=== PATIENT | female | born 1980 | race Caucasian/White ===

== ENCOUNTER 2023-05-10 06:32 | Day surgery (SDC) | payer OTHER, SELFPAY ==
[2023-05-06 10:11] LABS: Urine Albumin Negative (Neg - Trace); Urine Bilirubin Negative (Negative); Urine Character Clear (Clear); Urine Color Yellow; Urine Glucose Negative (Negative); Urine Ketone Negative (Negative); Urine Leukocyte Negative (Negative); Urine Nitrite Negative (Negative); Urine Occult Blood Negative (Negative); Urine Specific Gravity 1.015 (<1.030); Urine Urobilinogen Negative (Neg - 1+)
[2023-05-06 10:15] LABS: % Basophils 0.7 % (0-2); % Eosinophils 2.4 % (0-6); % Immature Granulocytes 0.6 % (0-0.5); % Lymphocytes 37.4 % (20.5-51.1); % Monocytes 6.5 % (1.7-9.3); % Neutrophils 52.4 % (42.2-75.2); Absolute Basophils 0.1 10^3/uL (0-0.2); Absolute Eosinophils 0.3 10^3/uL (0-0.7); Absolute Immature Granulocytes 0.1 10^3/uL (0-0.05); Absolute Lymphocytes 3.9 10^3/uL (1.2-3.4); Absolute Monocytes 0.7 10^3/uL (0.1-0.6); Absolute Neutrophils 5.5 10^3/uL (1.4-6.5); Hemoglobin 11.6 g/dL (12.0-16.0); Mean Corp Hgb Conc. 30.5 g/dL (33.0-37.0); Mean Corpuscular Hgb 23.2 pg (27.0-31.0); Mean Corpuscular Volume 76.2 fL (81.0-99.0); Nucleated Red Blood Cells % 0 %; Platelet Count 489 10^3/uL (130-400); Red Blood Cell Count 4.99 10^6/uL (4.20-5.40); Red Cell Dist. Width 20.9 % (11.5-14.5); White Blood Cell Count 10.4 10^3/uL (4.8-10.8)
[2023-05-06 10:30] LABS: APTT 34.1 Sec (23.4-35.0); PT 13.4 Sec (11.4-14.6)
[2023-05-06 10:51] LABS: Blood Urea Nitrogen 13 mg/dl (7-17); Calcium 9.4 mg/dl (8.4-10.2); Carbon Dioxide 19 mmol/L (22-30); Chloride 106 mmol/L (98-107); Glucose 86 mg/dl (70-99); Sodium 138 mmol/L (135-145); eGFR > 60.00
[2023-05-06 12:08] VITALS: BMI 27.9
[2023-05-10] VITALS (11 sets, daily range): BP systolic 118–135; BP diastolic 62–90; BMI 27.9
[2023-05-10] MEDS: NORMOSOL-R 1000 IV (08:15)
[2023-05-10 08:26] LABS: Urine Albumin Negative (Neg - Trace); Urine Bilirubin Negative (Negative); Urine Character Clear (Clear); Urine Color Yellow; Urine Glucose Negative (Negative); Urine Ketone Negative (Negative); Urine Leukocyte Negative (Negative); Urine Nitrite Negative (Negative); Urine Occult Blood Negative (Negative); Urine Specific Gravity 1.015 (<1.030); Urine Urobilinogen Negative (Neg - 1+); Urine pH 6.5 (5.0-9.0)
[2023-05-10 10:46] LABS: Glucose - Point of Care 90 mg/dl (70-99)
[2023-05-10] MEDS: DILAUDID 0.25 MG IV ×2 (10:52→11:09)
[2023-05-10] MEDS: VALIUM 5 MG PO (11:30)
== END 2023-05-10 12:44 | disposition home or self-care (01) ==
LOC: SDS 06:32
PROVIDERS: ATTENDING PHYSICIAN Urology; FAMILY PHYSICIAN Family Medicine
DX: N30.10 Interstitial cystitis (chronic) without hematuria (principal); N39.41 Urge incontinence
CPT/HCPCS: 52287; 36415; 80048; 81003; 82962; 85025; 85610; 85730; 87086; 93005; J0585

== ENCOUNTER 2023-11-01 08:16 | Inpatient (IN) | payer OTHER, SELFPAY ==
[2023-10-30 16:56] VITALS: BP 147/99
[2023-10-30 17:14] LABS: Urine Albumin Negative (Neg - Trace); Urine Bilirubin Negative (Negative); Urine Character Slightly Cloudy (Clear); Urine Color Yellow; Urine Glucose Negative (Negative); Urine Ketone Negative (Negative); Urine Leukocyte 2+ (Negative); Urine Nitrite Positive (Negative); Urine Occult Blood Negative (Negative); Urine Urobilinogen Negative (Neg - 1+)
[2023-10-30 17:27] LABS: Urine Bacteria Many (Negative); Urine Red Blood Cell 0-2 /HPF (0-2)
[2023-10-30 17:28] LABS: Urine White Cell 70-80 /HPF (0-5)
[2023-10-30] MEDS: ZOFRAN 4 MG IV (18:42)
[2023-10-30] MEDS: TORADOL 15 MG IV ×2 (18:42→21:53)
[2023-10-30] MEDS: NSS 1000 IV (18:43)
[2023-10-30 18:47] VITALS: BP 118/72
[2023-10-30 18:49] LABS: % Basophils 0.3 % (0-2); % Eosinophils 2.3 % (0-6); % Immature Granulocytes 0.7 % (0-0.5); % Lymphocytes 36.6 % (20.5-51.1); % Monocytes 6.9 % (1.7-9.3); % Neutrophils 53.2 % (42.2-75.2); Absolute Eosinophils 0.3 10^3/uL (0-0.7); Absolute Immature Granulocytes 0.1 10^3/uL (0-0.05); Absolute Lymphocytes 4.4 10^3/uL (1.2-3.4); Absolute Monocytes 0.8 10^3/uL (0.1-0.6); Absolute Neutrophils 6.4 10^3/uL (1.4-6.5); Hematocrit 33.8 % (37.0-47.0); Hemoglobin 10.7 g/dL (12.0-16.0); Mean Corp Hgb Conc. 31.7 g/dL (33.0-37.0); Mean Corpuscular Hgb 23.1 pg (27.0-31.0); Mean Platelet Volume 9.6 fL (7.4-10.4); Nucleated Red Blood Cells % 0 %; Platelet Count 407 10^3/uL (130-400); Red Blood Cell Count 4.63 10^6/uL (4.20-5.40); Red Cell Dist. Width 18.6 % (11.5-14.5)
[2023-10-30 18:59] LABS: HCG, Serum Qualitative Screen Negative
[2023-10-30 19:02] LABS: ALT (SGPT) 18 U/L (0-35); AST (SGOT) 17 U/L (14-36); Albumin 4.5 g/dl (3.5-5.0); Alkaline Phosphatase 83 U/L (38-126); Blood Urea Nitrogen 13 mg/dl (7-17); Calcium 9.4 mg/dl (8.4-10.2); Carbon Dioxide 20 mmol/L (22-30); Chloride 108 mmol/L (98-107); Glucose 85 mg/dl (70-99); Potassium 3.9 mmol/L (3.5-5.1); Sodium 138 mmol/L (135-145); Total Bilirubin 0.4 mg/dl (0.2-1.3); Total Protein 7.2 g/dl (6.3-8.2); eGFR > 60.00
[2023-10-30 21:14] VITALS: BP 122/86
--- NOTE | 2023-10-30 21:48 | ED.GENMED ---
History of Present Illness
General
Chief Complaint: Urinary Symptoms
Source: patient
Exam Limitations: none
Time Seen by Provider: 10/30/23 17:30
Nursing documentation reviewed up to this point in time: agreed with
History of Present Illness
History of Present Illness:
43-year-old female with past medical history of asthma, interstitial cystitis presenting to the emergency department today with concerns of frequency urgency and left-sided flank pain. Denies any fever chest pain shortness of breath has had nausea
no vomiting.
Review of Systems
Review of Systems
Allergies reviewed?: Yes
All Other Systems: ROS reviewed and negative except as documented in HPI and ROS
Phy Exam
Physical Exam
Physical Exam:
GENERAL: Alert , in no apparent distress
EYE: pupils equal and reactive
NECK: Supple, no significant adenopathy.
ENT: o/p clr, mmm.
CARDIAC: Regular rate and rhythm .
LUNGS: Clear breath sounds bilaterally, no acute respiratory distress, no wheezes/rales/rhonchi
ABDOMEN: Soft, without focal tenderness, no r/g, no cvat
NEUROLOGICAL: Alert and oriented, no focal neuro deficits
SKIN: Warm and dry, skin intact.
MUSCULOSKELETAL: No edema, well perfused.
PSYCH: Normal and appropriate interaction.
Course
Orders/Labs/Results
Orders:
Orders
10/30/23 17:06
Urinalysis Reflex To Culture Urgent
Date Specimen was Collected: 10/30/23
Time Specimen was Collected: 17:00
Urine Microscopic Reflex Cult Urgent
Urine Culture Urgent
TRACY Source: U
Specimen Description:
Date Specimen was Collected: 10/30/23
Time Specimen was Collected: 17:00
10/30/23 18:28
0.9% Sodium Chloride 1000 ml [Nss] 1,000 ml IV BOLUS
Ketorolac [Toradol] 15 mg IV NOW STA
Ondansetron Injectable [Zofran] 4 mg IV NOW STA
10/30/23 18:29
CT Abd/pel Without Iv Or Oral Urgent
Comment:
Reason For Exam: left flank pain hx of stone
Test Result ONCE
10/30/23 18:42
Complete Blood Count/With Diff Urgent
Comprehensive Metabolic Panel Urgent
HCG, Serum Qualitative Screen Urgent
10/30/23 21:43
CefTRIAXone [Rocephin] 1,000 mg IV NOW STA
Ketorolac [Toradol] 15 mg IV NOW STA
Tamsulosin [Flomax] 0.4 mg PO NOW STA
10/30/23 21:49
Sterile Water [Sterile Water For Injection] 20 ml .ROUTE .STK-MED
10/30/23 22:14
Albuterol [ProAIR HFA INHALER] 2 puff INH Q6H PRN
10/30/23 22:15
mometasone-formoterol [Dulera] 2 puff INH Q12H
10/30/23 22:18
Admit/Transfer Patient As Directed
Co-Sign Provider:
Level of Care: Observation services
Assign to:: Medical/Surgical
Physician / Group: Hospitalist
Diagnosis: Urolithiasis, acute cystitis
PRN Pain Medication Management As Directed
May give lesser potent ordered pain med per pt: Yes
preference::
Protocol:: Medication orders for pain may be administered in a
manner that supports deferring to patient preference
when the pt is:
- Requesting an ordered lesser potent pain medication.
Least to most potent pain medications are defined
as: acetaminophen < NSAID < tramadol < opioids
(morphine, oxycodone, hydromorphone).
- Requesting a lesser dose of the same medication IF
ORDERED.
- Requesting a less intrusive route of administration
if both routes are prescribed by the provider (PO <
IV).
07/20/24 22:19
Code Status As Directed
Resuscitation Status: Full Code
10/30/23 22:26
Strain Urine As Directed
If stone obtained- send for analysis: No
10/30/23 23:00
Mexiletine [Mexitil] 150 mg PO .AM
Mexiletine [Mexitil] 300 mg PO .DINNER TIME
10/31/23 08:00
Duloxetine Delayed Release [Cymbalta Delayed Release] 60 mg PO DAILY
Gabapentin [Neurontin] 400 mg PO TID
Omeprazole Suspension [Prilosec Baby Oral Suspension] 40 mg PO DAILY
Spironolactone [Aldactone] 25 mg PO DAILY
Tamsulosin [Flomax] 0.4 mg PO DAILY
atomoxetine 60 mg PO DAILY
10/31/23 22:00
Amitriptyline [Elavil] 50 mg PO HS
Atorvastatin [Lipitor] 10 mg PO HS
HydrOXYZINE [Atarax] 50 mg PO HS
Montelukast Sodium [Singulair] 10 mg PO HS
Topiramate [Topamax] 200 mg PO HS
melatonin 10 mg PO HS
Abnormal Lab Results
10/30/23 10/30/23
17:06 18:42
WBC 12.0 H 10^3/uL
(4.8-10.8)
Hgb 10.7 L g/dL
(12.0-16.0)
Hct 33.8 L %
(37.0-47.0)
MCV 73.0 L fL
(81.0-99.0)
MCH 23.1 L pg
(27.0-31.0)
MCHC 31.7 L g/dL
(33.0-37.0)
RDW 18.6 H %
(11.5-14.5)
Plt Count 407 H 10^3/uL
(130-400)
Abs Immat Gran (auto) 0.1 H 10^3/uL
(0-0.05)
Absolute Lymphs (auto) 4.4 H 10^3/uL
(1.2-3.4)
Absolute Monos (auto) 0.8 H 10^3/uL
(0.1-0.6)
Immature Gran % 0.7 H %
(0-0.5)
Chloride 108 H mmol/L
(98-107)
Carbon Dioxide 20 L mmol/L
(22-30)
Creatinine 1.1 H mg/dL
(0.6-1.0)
Urine Nitrite (Reflex) Positive A
(Negative)
Leukocyte Esterase Rfl 2+ A
(Negative)
Urine WBC (Reflex) 70-80 A /HPF
(0-5)
Urine Bacteria (Reflex) Many A
(Negative)
10/30/23 18:42
10/30/23 18:42
Vital Signs
Initial and Last Documented VS:
Initial Vital Signs
Temp Pulse Resp BP Pulse Ox
98.5 F 110 18 147/99 98
10/30/23 16:56 10/30/23 16:56 10/30/23 16:56 10/30/23 16:56 10/30/23 16:56
Last Documented Vital Signs
Temp Pulse Resp BP Pulse Ox
98.5 F 75 18 122/86 100
10/30/23 16:56 10/30/23 21:14 10/30/23 18:47 10/30/23 21:14 10/30/23 21:14
MDM/Problems Addressed
MDM/Problems Addressed:
43-year-old female presenting to the emergency department today with concerns of urinary symptoms as well as left-sided flank pain. On arrival initially tachycardic but improving after receiving pain medication and nausea medication. White count
of 12 renal function at baseline otherwise urinalysis appears to be consistent with urinary tract infection considering elevated nitrites, leukocyte esterase and elevated white blood cell count. CT scan showing 3 mm partially obstructing stone of
the left ureter. Case was discussed with urology felt stent was potentially possible but alternatively could treat with antibiotics and reassessment. Plan to treat with IV antibiotics and for monitoring overnight and reassessment tomorrow.
*Critical Care Note
Total Time (30-74mins, 75-104mins- exclusive of procedures): Not Applicable
ED Attending Note
-
Portions of this chart may have been created with voice recognition software.� Occasional wrong word or��sound alike� substitutions may have occurred due to the inherent limitations of voice recognition software.
Discharge Plan
Departure
Patient Disposition: Admit
Date of Disposition: 10/30/23
Time of Disposition: 22:33
Admit to: Med/Surg
Admit to doctor: Mickey
Presentation/result/management discussed w/ accepting MD/DO: Hospitalist
Patient with high blood pressure during this ER visit?: No
Condition: Good
Covid-19: Not Applicable
Discharge Problem:
Calculus, ureteral, UTI (urinary tract infection)
Prescriptions:
No Action
ondansetron HCl 4 MG tablet
4 mg PO PRN PRN (Reason: nausea)
clonazepam 0.25 MG tablet
0.5 mg PO PRN PRN (Reason: with olanzapine & migraines)
olanzapine 2.5 MG tablet
0.5 mg PO PRN PRN (Reason: migraines)
amitriptyline 50 MG tablet
50 mg PO HS
tamsulosin 0.4 MG capsule
0.4 mg PO DAILY
metformin 1,000 MG tablet
1,000 mg PO BID
gabapentin 300 MG capsule
400 mg PO TID
hydroxyzine HCl 25 MG tablet
50 mg PO HS
topiramate 100 MG tablet
200 mg PO HS
diazepam 5 MG tablet
5 mg PO PRN PRN (Reason: interstitial cystitis)
duloxetine 60 MG capsule,delayed release(DR/EC)
60 mg PO DAILY
Myrbetriq 50 MG tablet extended release 24 hr
50 mg PO DAILY
Emgality Pen 120 MG/ML pen injector
120 mg SQ MONTHLY
omeprazole 20 MG capsule,delayed release(DR/EC)
40 mg PO DAILY
melatonin 10 MG tablet
10 mg PO HS
Famotidine 10 MG Tablet
10 mg PO DAILY
Migrinal Nasal [place]
1 spray inhalation PRN PRN (Reason: migraines)
acetaminophen 500 mg Tablet
650 mg PO Q6H PRN (Reason: pain)
oxycodone-acetaminophen [Percocet] 7.5-325 mg Tablet
1 tab PO Q6H PRN (Reason: pain)
albuterol sulfate 90 mcg/actuation Hfa Aerosol Inhaler
2 puff INHALATION Q6H PRN (Reason: SOB)
Patient Comments:
a few weeks ago per patient.
Dulera 200-5 mcg/actuation Hfa Aerosol Inhaler
2 puff INHALATION Q12H
montelukast 10 mg Tablet
10 mg PO HS
almotriptan malate 12.5 mg Tablet
12.5 mg PO BID PRN (Reason: migraines)
Nurtec ODT 75 mg Tablet,Disintegrating
75 mg PO ONCE PRN (Reason: migraine)
Medical Cannabis
1 gummy PO PRN PRN (Reason: pain )
atorvastatin 10 mg Tablet
10 mg PO HS
phenazopyridine [Pyridium] 200 mg Tablet
200 mg PO TID
spironolactone 25 mg Tablet
25 mg PO DAILY
mexiletine 150 mg Capsule
150 mg PO .AM
mexiletine 150 mg Capsule
300 mg PO .DINNER TIME
nabumetone 500 mg Tablet
500 mg PO BID PRN (Reason: migraines)
atomoxetine 60 mg Capsule
60 mg PO DAILY
Vitamin D3
1 dose PO DAILY
Referrals:
May Kelsey DO [Family Provider] -
Interventions
Interventions:
*Risk Screen - Suicide Last Done: 10/30/23 18:24
*General Assessment Last Done: 10/30/23 18:24
*Neglect/Abuse Screening Last Done: 10/30/23 18:24
ED-Female Genitourinary Assessment Last Done: 10/30/23 18:24
Discharge Date and Time
Print Language: THAI
[2023-10-30] MEDS: FLOMAX 0.4 MG PO (21:53)
[2023-10-30] MEDS: ROCEPHIN 1000 MG IV (21:53)
--- NOTE | 2023-10-30 22:02 | HPS.HSE ---
Addendum entered and electronically signed by Ashley Arevalo MD 10/30/23 22:38:
Per Urology: patient added to OR schedule for a stent and can always cancel if we decide to watch.
Original Note:
Family Physician
-
Family Physician: May Kelsey DO
Chief Complaint
-
Dysuria frequency and back pain
History of Present Illness
This is a 43-year-old female was a past medical history of nephrolithiasis, interstitial cystitis, PCOS, asthma, migraine headaches, anxiety who presents to the emergency department with approximately 2 days of back pain as well as dysuria.
Patient reports sudden onset of back pain in her lower back. She initially thought that this was musculoskeletal pain and did not think much of it. She did not have any hematuria. She did notice foul malodorous urine that got her concerned. She
started having dysuria as well as urinary frequency. She reports nausea but no vomiting. She has not had any fevers or chills. Symptoms persisted and with urinary findings she became concerned and came to the emergency department.
In the emergency department the patient was afebrile, hemodynamically stable and in mild distress due to pain. The CT scan of the abdomen pelvis shows a left ureteral stone that was 3 mm with no hydronephrosis. There is a right nonobstructing
nephrolithiasis as well. UA was markedly positive with nitrite leukocyte esterase and pyuria as well as bacteriuria. She had leukocytosis of 12,000. Chemistries were all within normal limits.
Medical History
Past Medical History
Past Medical History: Reports Asthma and Psychiatric (Anxiety)
Additional Past Medical History:
PCOS
Migraine LÓPEZ
Interstitial Cystitis
Past Surgical History: Reports None
Social History
Tobacco: Non-smoker
Alcohol: None
Drug: None
Personal: Single
Living: With Family
Employment: Disabled
Family History
Family History: Diabetes and Hypertension
Allergies / Home Medications
Allergies reflects when Allergies were last updated in [employer].
Home Medications with original date entered in [employer]
Allergy/Medication List:
Allergies
Allergy/AdvReac Type Severity Reaction Status Date / Time
dichloralphenazone Allergy Anaphylaxis Verified 05/10/23 08:15
[From Midrin]
isometheptene [From Midrin] Allergy Anaphylaxis Verified 05/10/23 08:15
Latex, Natural Rubber Allergy Anaphylaxis Verified 05/10/23 08:16
metoclopramide [From Reglan] Allergy Hives Verified 05/10/23 08:15
pollen extracts Allergy nasal Verified 05/10/23 08:15
congestion
prochlorperazine Allergy Hives Verified 05/10/23 08:15
[From Compazine]
Home Medications
amitriptyline 50 mg tablet 50 mg PO HS 12/29/19
clonazepam 0.5 mg tablet 0.5 mg PO PRN PRN with olanzapine & migraines 12/29/19
diazepam 5 mg tablet 5 mg PO PRN PRN interstitial cystitis 12/29/19
duloxetine 60 mg capsule,delayed release 60 mg PO DAILY 12/29/19
gabapentin 300 mg capsule 400 mg PO TID 12/29/19
hydroxyzine HCl 25 mg tablet 50 mg PO HS 12/29/19
metformin 1,000 mg tablet 1,000 mg PO BID 12/29/19
mirabegron 50 mg tablet,extended release 24 hr (Myrbetriq) 50 mg PO DAILY 12/29/19
olanzapine 2.5 mg tablet 0.5 mg PO PRN PRN migraines 12/29/19
ondansetron HCl 4 mg tablet 4 mg PO PRN PRN nausea 12/29/19
tamsulosin 0.4 mg capsule 0.4 mg PO DAILY 12/29/19
topiramate 100 mg tablet 200 mg PO HS 12/29/19
galcanezumab-gnlm 120 mg/mL subcutaneous pen injector (Emgality Pen) 120 mg SQ MONTHLY 08/22/20
Famotidine 10 mg PO DAILY 07/23/21
Migrinal Nasal [place] 1 spray inhalation PRN PRN migraines 07/23/21
melatonin 10 mg tablet 10 mg PO HS 07/23/21
omeprazole 20 mg capsule,delayed release 40 mg PO DAILY 07/23/21
acetaminophen 500 mg tablet 650 mg PO Q6H PRN pain 01/22/22
albuterol sulfate 90 mcg/actuation aerosol inhaler 2 puff inhalation Q6H PRN SOB 01/22/22
mometasone-formoterol HFA 200 mcg-5 mcg/actuation aerosol inhaler (Dulera) 2 puff inhalation Q12H 01/22/22
montelukast 10 mg tablet 10 mg PO HS 01/22/22
oxycodone-acetaminophen 7.5 mg-325 mg tablet (Percocet) 1 tab PO Q6H PRN pain 01/22/22
almotriptan malate 12.5 mg tablet 12.5 mg PO BID PRN migraines 01/27/22
rimegepant 75 mg disintegrating tablet (Nurtec ODT) 75 mg PO ONCE PRN migraine 06/26/22
Medical Cannabis 1 gummy PO PRN PRN pain 06/29/22
Vitamin D3 1 dose PO DAILY 05/05/23
atomoxetine 60 mg capsule 60 mg PO DAILY 05/05/23
atorvastatin 10 mg tablet 10 mg PO HS 05/05/23
mexiletine 150 mg capsule 150 mg PO .AM 05/05/23
mexiletine 150 mg capsule 300 mg PO .DINNER TIME 05/05/23
nabumetone 500 mg tablet 500 mg PO BID PRN migraines 05/05/23
phenazopyridine 200 mg tablet (Pyridium) 200 mg PO TID 05/05/23
spironolactone 25 mg tablet 25 mg PO DAILY 05/05/23
Review of Systems
-
History Source: Patient
Constitutional: Reports No Symptoms
EENT: Reports No Symptoms
Respiratory: Reports No Symptoms
Cardiac: Reports No Symptoms
Abdomen/GI: Reports Abdominal Pain and Nausea
: Reports Dysuria, Frequency, Flank Pain and Urgency
Musculoskeletal: Reports No Symptoms
Skin: Reports No Symptoms
Neurological: Reports No Symptoms
Endocrine: Reports No Symptoms
Hematologic/Lymphatic: Reports No Symptoms
Psych: Reports No Symptoms
Physical Exam
Vital Signs
Vital Signs
Temp Pulse Resp BP Pulse Ox
98.5 F 75 18 122/86 100
10/30/23 16:56 10/30/23 21:14 10/30/23 18:47 10/30/23 21:14 10/30/23 21:14
Physical Exam
General: Well Developed, Well Nourished, No Apparent Distress and Conversant
HEENT: NormoCephalic, Anicteric, Moist mucous membranes, Atraumatic and PERRLA
Respiratory: Clear
Cardiac: S1/S2 and Regular Rhythm
Breast: Deferred by me
GI: Soft, Non Tender, Non Distended and Normal Bowel Sounds
Rectal: Deferred by Provider
Genito-urinary: Costovertebral angle tend
Musculoskeletal: No Clubbing, No Cyanosis and No Edema
Skin: Warm and Dry
Neuro: AO x 3
Hematologic/Lymphatic: No Lymphadenopathy
Psych: Calm
Laboratory Results
-
10/30/23 18:42
10/30/23 18:42
Laboratory Results
Total Bilirubin 0.4 mg/dl (0.2-1.3) 10/30/23 18:42
AST 17 U/L (14-36) 10/30/23 18:42
ALT 18 U/L (0-35) 10/30/23 18:42
Alkaline Phosphatase 83 U/L (38-126) 10/30/23 18:42
Data Reviewed
-
CT Scan: Image Personally Visualized and interpreted
Lab Data: Labs Reviewed by me
Old Records: Reviewed
Impression/Plan
-
IMPRESSION:
Patient with h/o anxiety, asthma, interstitial cystitis, PCOS, migraine headaches comes in with 2 days of back pain, dysuria and foul smelling urine and found to have a 3 mm stone in the left ureter without hydronephrosis as well as u/a c/w uti.
PLAN:
1. Obstructing urolithiasis - Recurrent nephrolithiasis. Renal function is stable. No signs of systemic infection. Patient is well appearing and not septic.
- admit to gen med
- pain control and antiemetics
- continue tamsulosin
- IV fluids, strain urine
- urology is aware, stone is likley to pass spontaneously but may require procedure given infection or if patient appears to decompensate
- npo after midnight
2. Cystitis - foul smelling urine with positive u/a with bacteruria and nitrites c/w UTI complicating her underlying interstitial cystitis
- urine cultures
- continue ceftriaxone for now
- pyridium prn
3. Migraine LÓPEZ - no active issues
- continue topamax, mexiletine, gabapentin and duloxetine
4. PCOS
- will hold metformin in case of procedure, continue spironolactone
DVT PPX - lovenox sq
Full Code
[2023-10-31 00:02] VITALS: BP 133/84
[2023-10-31 00:43] VITALS: BP 133/87; BMI 28.2
[2023-10-31] MEDS: DILAUDID 0.5 MG IV ×3 (00:58→09:26)
[2023-10-31] MEDS: LR 1000 IV ×3 (00:58→20:03)
--- NOTE | 2023-10-31 01:00 | PTCARENOTE ---
Received pt from ED, pt ambulated from stretcher to bed. complaints of abdominal pain and left back pain 11/19-see JUN. IVF as ordered.
[2023-10-31] MEDS: SYMBICORT 160/4.5 MCG INHALER INH (02:01)
[2023-10-31] MEDS: TORADOL 10 MG IV ×2 (02:59→16:29)
[2023-10-31 07:05] VITALS: BP 122/82
[2023-10-31] MEDS: SYMBICORT 160/4.5 MCG INHALER 2 PUFF INH ×2 (07:53→19:56)
[2023-10-31 08:14] LABS: Hematocrit 29.8 % (37.0-47.0); Hemoglobin 9.3 g/dL (12.0-16.0); Mean Corp Hgb Conc. 31.2 g/dL (33.0-37.0); Mean Corpuscular Volume 73.6 fL (81.0-99.0); Platelet Count 348 10^3/uL (130-400); Red Blood Cell Count 4.05 10^6/uL (4.20-5.40); Red Cell Dist. Width 18.4 % (11.5-14.5); White Blood Cell Count 9.5 10^3/uL (4.8-10.8)
[2023-10-31 08:34] LABS: Blood Urea Nitrogen 12 mg/dl (7-17); Calcium 8.5 mg/dl (8.4-10.2); Carbon Dioxide 17 mmol/L (22-30); Chloride 113 mmol/L (98-107); Estimated Creatinine Clearance 81 ml/min; Glucose 76 mg/dl (70-99); Potassium 4.2 mmol/L (3.5-5.1); Sodium 138 mmol/L (135-145); eGFR > 60.00
[2023-10-31] MEDS: PROTONIX 40 MG PO (09:24)
[2023-10-31] MEDS: CYMBALTA DELAYED RELEASE 60 MG PO (09:24)
[2023-10-31] MEDS: FLOMAX 0.4 MG PO (09:24)
[2023-10-31] MEDS: NEURONTIN 400 MG PO ×3 (09:25→21:13)
[2023-10-31] MEDS: ALDACTONE 25 MG PO (09:25)
--- NOTE | 2023-10-31 09:43 | CONS.URO ---
Consultation
-
Performing Provider: Peffer
Reason for Consultation: Ureteral stone, UTI
Medical History
History of Present Illness
43[address] Moura and Dr. Sanchez for history of interstitial cystitis, s/p hydrodistension and bladder botox, hysterectomy
History of known R renal stones in the past
Presented with 3 days of midline to left lower back pain
CT showed likely 3mm L mid ureteral stone and multiple R renal stones
She had urinalysis consistent with UTI, however did not have significant UTI sx over her baseline dysuria and urinary frequency and no fevers or sepsis
She was admitted for observation and possible ureteral stent
Past Medical History
Past Medical History: Other (PCOS Migraine LÓPEZ Interstitial Cystitis )
Past Surgical History: Gynocological and Urological (bladder botox, hydrodistension)
Social History
Tobacco: Non-smoker
Alcohol: None
Drug: None
Living: With Family
Family History
Family History: Reviewed & Not Pertinent
Allergies/Home Medications
Allergies
Allergy/AdvReac Type Severity Reaction Status Date / Time
dichloralphenazone Allergy Anaphylaxis Verified 05/10/23 08:15
[From Midrin]
isometheptene [From Midrin] Allergy Anaphylaxis Verified 05/10/23 08:15
Latex, Natural Rubber Allergy Anaphylaxis Verified 05/10/23 08:16
metoclopramide [From Reglan] Allergy Hives Verified 05/10/23 08:15
pollen extracts Allergy nasal Verified 05/10/23 08:15
congestion
prochlorperazine Allergy Hives Verified 05/10/23 08:15
[From Compazine]
Home Medications
�Medication �Instructions �Recorded �Confirmed �Type
amitriptyline 50 mg tablet 50 mg PO HS 12/29/19 05/10/23 History
clonazepam 0.5 mg tablet 0.5 mg PO PRN PRN with olanzapine 12/29/19 05/10/23 History
& migraines
diazepam 5 mg tablet 5 mg PO PRN PRN interstitial 12/29/19 05/10/23 History
cystitis
duloxetine 60 mg capsule,delayed 60 mg PO DAILY 12/29/19 05/10/23 History
release
gabapentin 300 mg capsule 400 mg PO TID 12/29/19 05/10/23 History
hydroxyzine HCl 25 mg tablet 50 mg PO HS 12/29/19 05/10/23 History
metformin 1,000 mg tablet 1,000 mg PO BID 12/29/19 05/10/23 History
mirabegron 50 mg tablet,extended 50 mg PO DAILY 12/29/19 05/10/23 History
release 24 hr (Myrbetriq)
olanzapine 2.5 mg tablet 0.5 mg PO PRN PRN migraines 12/29/19 05/10/23 History
ondansetron HCl 4 mg tablet 4 mg PO PRN PRN nausea 12/29/19 05/10/23 History
tamsulosin 0.4 mg capsule 0.4 mg PO DAILY 12/29/19 05/10/23 History
topiramate 100 mg tablet 200 mg PO HS 12/29/19 05/10/23 History
galcanezumab-gnlm 120 mg/mL 120 mg SQ MONTHLY 08/22/20 05/10/23 History
subcutaneous pen injector
(Emgality Pen)
Famotidine 10 mg PO DAILY 07/23/21 05/10/23 History
Migrinal Nasal [place] 1 spray inhalation PRN PRN 07/23/21 05/10/23 History
migraines
melatonin 10 mg tablet 10 mg PO HS 07/23/21 05/10/23 History
omeprazole 20 mg capsule,delayed 40 mg PO DAILY 07/23/21 05/10/23 History
release
acetaminophen 500 mg tablet 650 mg PO Q6H PRN pain 01/22/22 05/10/23 History
albuterol sulfate 90 mcg/actuation 2 puff inhalation Q6H PRN SOB 01/22/22 05/10/23 History
aerosol inhaler
mometasone-formoterol HFA 200 2 puff inhalation Q12H 01/22/22 05/10/23 History
mcg-5 mcg/actuation aerosol
inhaler (Dulera)
montelukast 10 mg tablet 10 mg PO HS 01/22/22 05/10/23 History
oxycodone-acetaminophen 7.5 mg-325 1 tab PO Q6H PRN pain 01/22/22 05/10/23 History
mg tablet (Percocet)
almotriptan malate 12.5 mg tablet 12.5 mg PO BID PRN migraines 01/27/22 05/10/23 History
rimegepant 75 mg disintegrating 75 mg PO ONCE PRN migraine 06/26/22 05/10/23 History
tablet (Nurtec ODT)
Medical Cannabis 1 gummy PO PRN PRN pain 06/29/22 05/10/23 History
Vitamin D3 1 dose PO DAILY 05/05/23 05/10/23 History
atomoxetine 60 mg capsule 60 mg PO DAILY 05/05/23 05/10/23 History
atorvastatin 10 mg tablet 10 mg PO HS 05/05/23 05/10/23 History
mexiletine 150 mg capsule 150 mg PO .AM 05/05/23 05/10/23 History
mexiletine 150 mg capsule 300 mg PO .DINNER TIME 05/05/23 05/10/23 History
nabumetone 500 mg tablet 500 mg PO BID PRN migraines 05/05/23 05/10/23 History
phenazopyridine 200 mg tablet 200 mg PO TID 05/05/23 05/10/23 History
(Pyridium)
spironolactone 25 mg tablet 25 mg PO DAILY 05/05/23 05/10/23 History
Physical Exam
Vital Signs
Vital Signs
Temp Pulse Resp BP Pulse Ox
97.6 F 71 16 122/82 98
10/31/23 07:05 10/31/23 09:25 10/31/23 08:00 10/31/23 09:25 10/31/23 08:00
Lab / Testing Results
Laboratory Results
10/31/23 07:13
10/31/23 07:13
Physical Exam
General: Well Developed, Well Nourished and No Apparent Distress
Respiratory: Clear
GI: Soft and Non Tender
Genito-urinary: Costovertebral Angle Tend (very mild L)
Neuro: AO x 3
Psych: Calm and Intact Judgement
Assessment / Plan
-
43F with refractory interstitial cystitis
Admitted with UTI and suspected 3mm L mid ureteral stone
- Calcification on CT is not convincingly within the left ureter on my read, there is no visible hydronephrosis, and patient locates her pain to the low midline back, all suggesting this may not be a ureteral stone. However if she becomes septic we
will treat it as such with ureteral stent
- Discussed management options for presumed stone including OR for stent placement and outpatient trial of passage. I am concerned that with her interstitial cystitis she will not tolerate a stent and require inpatient hospitalization for pain until
her stone can be safely removed. She shares my concern and would prefer to try to pass the stone if possible.
- Currently remaining inpatient per hospitalist to control migraine pain. Once pain controlled, recommend outpatient trial of passage with tamsulosin, oral antibiotic, and PO pain control
- Continue abx, follow up cultures
Will follow
--- NOTE | 2023-10-31 11:27 | W.PN.HOSP.TC ---
Today's Communication/Plan
-
Monitor vital signs and see plan
Continue ceftriaxone
Follow urine culture
Strain urine
Flomax
Continue with migraine meds
Assessment / Plan
Assessment / Plan
General: Well Developed, Well Nourished, No Apparent Distress and Conversant
HEENT: NormoCephalic, Anicteric, Moist mucous membranes, Atraumatic and PERRLA
Respiratory: Clear
Cardiac: S1/S2 and Regular Rhythm
GI: Soft, Non Tender, Non Distended and Normal Bowel Sounds
Genito-urinary: Costovertebral angle tend
Musculoskeletal:No Edema
Neuro: AO x 3
Psych: Calm
Obstructing urolithiasis - Recurrent nephrolithiasis
- pain control and antiemetics
- continue tamsulosin
- IV fluids, strain urine
No plan for stent, discussed with urology.
UA significantly positive, follow urine culture
Cystitis - foul smelling urine with positive u/a with bacteruria and nitrites c/w UTI complicating her underlying interstitial cystitis
- urine cultures
- continue ceftriaxone for now
- pyridium
Migraine LÓPEZ -missed medications last night
now with headache
- continue topamax, mexiletine, gabapentin and duloxetine
PCOS
- will hold metformin in case of procedure, continue spironolactone
DVT PPX - lovenox sq
Full Code
Anticipated Discharge: Within 24 hours
Subjective/Interval History
-
Date of Service: October 31, 2023
headache
Objective Data
-
Labs:
Laboratory Results
10/31/23
07:13
WBC 9.5
Hgb 9.3 L
Hct 29.8 L
Plt Count 348
Sodium 138
Potassium 4.2
Chloride 113 H
Carbon Dioxide 17 L
BUN 12
Creatinine 0.9
Glucose 76
Calcium 8.5
Vital Signs:
Vital Signs
Temp Pulse Resp BP Pulse Ox
97.6 F 71 16 122/82 98
10/31/23 07:05 10/31/23 09:25 10/31/23 08:00 10/31/23 09:25 10/31/23 08:00
[2023-10-31 15:13] VITALS: BP 141/67
[2023-10-31 16:13] VITALS: BP 141/67
[2023-10-31] MEDS: LOVENOX 40 MG SC (16:28)
[2023-10-31] MEDS: NON-FORMULARY ITEM 2 UNIT PO (16:28)
[2023-10-31] MEDS: Pyridium 200 MG PO ×2 (16:28→21:14)
--- NOTE | 2023-10-31 16:35 | CM ---
met with patient and her father at bedside.patient lives with her parents in house with 10 [address],her bed and bath is on first level.she amb i and is I with her adl's.dr ismael mauro is her pcp,she uses [facility] in [place].she
has no poa.
pmh: cystitis,asthma,migranes
patient is adm with acute cystitis.she is on iv abx,pyridium,strain urine,uine cx,ivf,migrane meds.splan is dc home with no needs anticipated.
[2023-10-31] MEDS: ATARAX 50 MG PO (21:11)
[2023-10-31] MEDS: MELATONIN 10 MG PO (21:12)
[2023-10-31] MEDS: ELAVIL 50 MG PO (21:12)
[2023-10-31] MEDS: LIPITOR 10 MG PO (21:12)
[2023-10-31] MEDS: ROCEPHIN 1000 MG IV (21:14)
[2023-10-31] MEDS: STERILE WATER FOR INJECTION 10 ML IV (21:14)
[2023-10-31] MEDS: TOPAMAX 200 MG PO (21:15)
[2023-10-31] MEDS: MIRALAX 17 GRAMS PO (21:15)
[2023-10-31] MEDS: SINGULAIR 10 MG PO (22:24)
[2023-10-31 23:30] VITALS: BP 121/79
[2023-11-01] MEDS: DILAUDID 0.5 MG IV ×3 (02:44→23:35)
[2023-11-01] MEDS: TORADOL 10 MG IV ×3 (04:03→21:53)
[2023-11-01] MEDS: ZOFRAN 4 MG IV (04:08)
[2023-11-01] MEDS: LR 1000 IV (06:10)
[2023-11-01 07:05] VITALS: BP 118/78
--- NOTE | 2023-11-01 07:34 | W.PN.HOSP.TC ---
Today's Communication/Plan
-
Follow urine culture
cont abx
pain control
prn ativan
Iron supplementation
Assessment / Plan
Assessment / Plan
General: Well Developed, Well Nourished, No Apparent Distress and Conversant
HEENT: NormoCephalic, Anicteric, Moist mucous membranes, Atraumatic and PERRLA
Respiratory: Clear
Cardiac: S1/S2 and Regular Rhythm
GI: Soft, Mild Tenderness, Non Distended and Normal Bowel Sounds
Genito-urinary: Costovertebral angle tender
Musculoskeletal:No Edema
Neuro: AO x 3
Psych: Calm
43F Kidney Stones Interstitial Cystitis PCOS Asthma Migraines Anxiety here for suspected Lt ureter stone with associated complicated UTI
Possible Lt ureter stone - Recurrent nephrolithiasis
- pain control and antiemetics
- continue tamsulosin
- IV fluids, strain urine
urology eval appreciated no plans for stent at this time
UA significantly positive, follow urine culture
Cystitis - foul smelling urine with positive u/a with bacteruria and nitrites c/w UTI complicating her underlying interstitial cystitis
- urine cultures prelim pos gram neg bacilli
- continue ceftriaxone for now
- pyridium
Migraine LÓPEZ
- continue topamax, mexiletine, gabapentin and duloxetine
PCOS
- holding metformin in case of procedure, continue spironolactone
Anxiety
-prn ativan, low dose in order to minimize interaction w/ patient's other medications
Mild Iron def Anemia
monitor H&H
Iron supplementation started
DVT PPX - lovenox sq
Full Code
Discussed with patient and patient's father Cayetano
I spent a total of 50 minutes with the patient or on the floor. More than 50% of this time involved counseling and coordination of care.
Anticipated Discharge: Within 24 hours
Subjective/Interval History
-
Date of Service: November 01, 2023
reports overall improvement in symptoms though not resolved. Further reports possibly passing stone overnight.
Objective Data
-
Labs:
Laboratory Results
11/01/23
06:42
WBC Pending
Hgb Pending
Hct Pending
Plt Count Pending
Sodium Pending
Potassium Pending
Chloride Pending
Carbon Dioxide Pending
BUN Pending
Creatinine Pending
Glucose Pending
Calcium Pending
Vital Signs:
Vital Signs
Temp Pulse Resp BP Pulse Ox
98.2 F 87 16 121/79 96
10/31/23 23:30 10/31/23 23:30 10/31/23 23:30 10/31/23 23:30 10/31/23 23:30
I&O
10/31/23 11/01/23 11/02/23
06:59 06:59 06:59
Intake Total 2400 / 2400
Output Total 1650 / 1650
Balance 750 / 750
[2023-11-01] MEDS: SYMBICORT 160/4.5 MCG INHALER 2 PUFF INH ×2 (07:43→19:13)
[2023-11-01 08:03] LABS: % Basophils 0.5 % (0-2); % Eosinophils 3.3 % (0-6); % Immature Granulocytes 0.5 % (0-0.5); % Lymphocytes 45.9 % (20.5-51.1); % Monocytes 7.7 % (1.7-9.3); % Neutrophils 42.1 % (42.2-75.2); Absolute Basophils 0.1 10^3/uL (0-0.2); Absolute Eosinophils 0.3 10^3/uL (0-0.7); Absolute Immature Granulocytes 0.1 10^3/uL (0-0.05); Absolute Lymphocytes 4.2 10^3/uL (1.2-3.4); Absolute Monocytes 0.7 10^3/uL (0.1-0.6); Absolute Neutrophils 3.9 10^3/uL (1.4-6.5); Hematocrit 29.7 % (37.0-47.0); Mean Corp Hgb Conc. 30.3 g/dL (33.0-37.0); Mean Corpuscular Hgb 23.1 pg (27.0-31.0); Mean Corpuscular Volume 76.3 fL (81.0-99.0); Mean Platelet Volume 10.1 fL (7.4-10.4); Nucleated Red Blood Cells % 0 %; Platelet Count 325 10^3/uL (130-400); Red Blood Cell Count 3.89 10^6/uL (4.20-5.40); Red Cell Dist. Width 18.6 % (11.5-14.5); White Blood Cell Count 9.2 10^3/uL (4.8-10.8)
[2023-11-01 08:23] LABS: Blood Urea Nitrogen 12 mg/dl (7-17); Calcium 8.6 mg/dl (8.4-10.2); Carbon Dioxide 22 mmol/L (22-30); Chloride 113 mmol/L (98-107); Estimated Creatinine Clearance 81 ml/min; Glucose 92 mg/dl (70-99); Potassium 4.4 mmol/L (3.5-5.1); Sodium 140 mmol/L (135-145); eGFR > 60.00
[2023-11-01] MEDS: FLOMAX 0.4 MG PO (08:52)
[2023-11-01] MEDS: Pyridium 200 MG PO ×3 (08:52→21:37)
[2023-11-01] MEDS: PROTONIX 40 MG PO (08:52)
[2023-11-01] MEDS: NEURONTIN 400 MG PO ×3 (08:52→21:37)
[2023-11-01] MEDS: ALDACTONE 25 MG PO (08:52)
[2023-11-01] MEDS: CYMBALTA DELAYED RELEASE 60 MG PO (08:52)
[2023-11-01] MEDS: NON-FORMULARY ITEM 1 UNIT PO (08:53)
--- NOTE | 2023-11-01 10:13 | W.PN.URO.CBU ---
Today's Communication / Plan
-
Follow up for further stone management
Assessment / Plan
-
43F with refractory interstitial cystitis and pelvic pain
s/p hysterectomy, bladder botox, hydrodistension in the past
Admitted with afebrile UTI and suspected 3mm L mid ureteral stone
- Calcification on CT is not convincingly within the left ureter on my read, there is no visible hydronephrosis, and patient locates her pain to the low midline back, all suggesting this may not be a ureteral stone. However if she becomes septic we
will treat it as such with ureteral stent
- Discussed management options for presumed stone including OR for stent placement and outpatient trial of passage. I am concerned that with her interstitial cystitis she will not tolerate a stent and require inpatient hospitalization for pain until
her stone can be safely removed. She shares my concern and would prefer to try to pass the stone if possible.
- Stable for discharge from urology standpoint for outpatient trial of passage with tamsulosin, empiric oral antibiotic ie cefdinir, PO pain control, and straining urine with all voids
- Continue abx, follow up cultures
Diagnosis
-
Date of Service: November 01, 2023
-
Patient Diagnosis:
L ureteral stone
Interstitial cystitis
UTI
Post Op Day:
Subjective
-
feeling well
pain fairly well controlled with some intermittent pain, moving to pelvis
Objective
-
Vital Signs
Temp Pulse Resp BP Pulse Ox
97.7 F 74 14 118/78 95
11/01/23 07:05 11/01/23 08:52 11/01/23 07:05 11/01/23 08:52 11/01/23 07:05
Intake and Output
10/31/23 11/01/23 11/02/23
06:59 06:59 06:59
Intake Total 2400 / 2400
Output Total 1649 / 1649
Balance 750 / 750
Intake:
Oral fluids 1200 / 1200
IV fluids (Total) 1200 / 1200
Output:
Urine, Voided 1649 / 1649
Other:
Number of approximated MODERATE 2 4
amounts of urine
Laboratory Results
11/01/23 06:42
11/01/23 06:42
Physical Exam
-
General - well developed, well nourished, no acute distress
Chest - clear
Abdomen - soft, non-tender
Skin - warm & dry with no rash
[2023-11-01 12:46] LABS: Iron 35 ug/dl (37-170)
[2023-11-01 12:55] LABS: Percent Saturation 9 % (20-50); Total Iron Binding Capacity 387 ug/dl (265-497)
[2023-11-01 13:44] LABS: Folate 15.3 ng/ml (2.76-20); Vitamin B12 316 pg/ml (239-931)
[2023-11-01 15:25] VITALS: BP 132/89
[2023-11-01] MEDS: LOVENOX 40 MG SC (16:34)
[2023-11-01] MEDS: NON-FORMULARY ITEM 2 UNIT PO (16:35)
[2023-11-01] MEDS: ROCEPHIN 1000 MG IV (21:37)
[2023-11-01] MEDS: STERILE WATER FOR INJECTION 10 ML IV (21:37)
[2023-11-01] MEDS: MELATONIN 10 MG PO (21:37)
[2023-11-01] MEDS: ATARAX 50 MG PO (21:39)
[2023-11-01] MEDS: TOPAMAX 200 MG PO (21:44)
[2023-11-01] MEDS: LIPITOR 10 MG PO (21:44)
[2023-11-01] MEDS: ELAVIL 50 MG PO (21:44)
[2023-11-01] MEDS: SINGULAIR 10 MG PO (21:44)
[2023-11-01] MEDS: FLUSH (NSS) 1 FLUSH IV ×2 (21:45→23:36)
[2023-11-01] MEDS: ATIVAN 0.5 MG PO (21:50)
[2023-11-01 23:10] VITALS: BP 121/89
--- NOTE | 2023-11-02 07:10 | W.PN.HOSP.TC ---
Today's Communication/Plan
-
discharge
Assessment / Plan
Assessment / Plan
General: Well Developed, Well Nourished, No Apparent Distress and Conversant
HEENT: NormoCephalic, Anicteric, Moist mucous membranes, Atraumatic and PERRLA
Respiratory: Clear
Cardiac: S1/S2 and Regular Rhythm
GI: Soft, Mild Tenderness, Non Distended and Normal Bowel Sounds
Genito-urinary: Costovertebral angle tender
Musculoskeletal:No Edema
Neuro: AO x 3
Psych: Calm
43F Kidney Stones Interstitial Cystitis PCOS Asthma Migraines Anxiety here for suspected Lt ureter stone with associated complicated UTI
Suspected Lt ureter stone - Recurrent nephrolithiasis
- pain control and antiemetics
- continue tamsulosin
- IV fluids completed
-strain urine
urology eval appreciated no plans for stent at this time, stable for discharge outpatient follow up.
UA significantly positive, follow urine culture
Cystitis - foul smelling urine with positive u/a with bacteruria and nitrites c/w UTI complicating her underlying interstitial cystitis
- urine culture appreciated E. coli resistant to Ampicillin, intermediate resistance Cipro, otherwise sensitive to all other abx tested including Augmentin
- Ceftriaxone switched to Augmentin planned for 7 more days of abx (daily probiotic use recommended to promote gut health)
- pyridium
Migraine LÓPEZ
- continue topamax, mexiletine, gabapentin and duloxetine
PCOS
- continue spironolactone
-metformin held for possible procedure, ok to resume on discharge
Anxiety
-prn ativan, low dose in order to minimize interaction w/ patient's other medications
Mild Iron def Anemia
monitor H&H
Iron supplementation started
Constipation
cont bowel regimen
DVT PPX - lovenox sq
Full Code
Medically stable for discharge home with outpatient follow up recommendations.
Discussed with patient and patient's father Cayetano
Total Time Preparing Discharge __50 minutes including examination of the patient, summary of the hospital stay, instructions for continuing care to all relevant caregivers; and preparation of discharge records, prescriptions, and referral
forms if necessary.
Anticipated Discharge: Today
Subjective/Interval History
-
Date of Service: November 02, 2023
Seen and examined at bedside in no acute distress resting comfortably in bed. Reports overall improvement in symptoms though not resolved. Otherwise denies new acute issues. Eager to go home.
Objective Data
-
Labs:
Laboratory Results
11/02/23
06:00
WBC Pending
Hgb Pending
Hct Pending
Plt Count Pending
Sodium Pending
Potassium Pending
Chloride Pending
Carbon Dioxide Pending
BUN Pending
Creatinine Pending
Glucose Pending
Calcium Pending
Vital Signs:
Vital Signs
Temp Pulse Resp BP Pulse Ox
99.8 F 82 16 121/89 97
11/01/23 23:10 11/01/23 23:10 11/01/23 23:10 11/01/23 23:10 11/01/23 23:10
I&O
11/01/23 11/02/23 11/03/23
06:59 06:59 06:59
Intake Total 2400 / 2400 2400 / 2400
Output Total 1650 / 1650 1500 / 1500
Balance 750 / 750 900 / 900
[2023-11-02 08:00] VITALS: BP 121/80
[2023-11-02] MEDS: SYMBICORT 160/4.5 MCG INHALER 2 PUFF INH (08:05)
[2023-11-02 08:18] LABS: Hematocrit 31.2 % (37.0-47.0); Hemoglobin 9.6 g/dL (12.0-16.0); Mean Corp Hgb Conc. 30.8 g/dL (33.0-37.0); Mean Corpuscular Hgb 23.8 pg (27.0-31.0); Mean Corpuscular Volume 77.4 fL (81.0-99.0); Mean Platelet Volume 10.2 fL (7.4-10.4); Platelet Count 312 10^3/uL (130-400); Red Blood Cell Count 4.03 10^6/uL (4.20-5.40); Red Cell Dist. Width 18.6 % (11.5-14.5); White Blood Cell Count 9.5 10^3/uL (4.8-10.8)
[2023-11-02 08:50] LABS: Blood Urea Nitrogen 11 mg/dl (7-17); Carbon Dioxide 22 mmol/L (22-30); Chloride 111 mmol/L (98-107); Estimated Creatinine Clearance 73 ml/min; Glucose 80 mg/dl (70-99); Magnesium 1.9 mg/dl (1.6-2.3); Phosphorus 4.2 mg/dl (2.5-4.5); Potassium 4.2 mmol/L (3.5-5.1); Sodium 140 mmol/L (135-145); eGFR > 60.00
[2023-11-02] MEDS: PROTONIX 40 MG PO (08:50)
[2023-11-02] MEDS: Pyridium 200 MG PO ×2 (08:50→16:00)
[2023-11-02] MEDS: NEURONTIN 400 MG PO ×2 (08:50→16:00)
[2023-11-02] MEDS: FLOMAX 0.4 MG PO (08:50)
[2023-11-02] MEDS: CYMBALTA DELAYED RELEASE 60 MG PO (08:51)
[2023-11-02] MEDS: FEOSOL 325 MG PO (08:51)
[2023-11-02] MEDS: ALDACTONE 25 MG PO (08:51)
[2023-11-02] MEDS: NON-FORMULARY ITEM 1 UNIT PO ×2 (08:53→16:01)
[2023-11-02] MEDS: MIRALAX 17 GRAMS PO (09:00)
[2023-11-02] MEDS: TORADOL 10 MG IV ×2 (09:02→15:11)
--- NOTE | 2023-11-02 09:38 | W.PN.URO.CBU ---
Today's Communication / Plan
-
- Stable for discharge from urology standpoint
- Discharge with tamsulosin, PO pain control, and straining urine with all voids
- Continue oral antibiotic per culture results for additional 7 days
- Will schedule outpatient follow up early next week to discuss next steps if stone not passed
Assessment / Plan
-
43F with refractory interstitial cystitis and pelvic pain
s/p hysterectomy, bladder botox, hydrodistension in the past
Admitted with afebrile UTI and suspected 3mm L mid ureteral stone
- Calcification on CT is not convincingly within the left ureter on my read, there is no visible hydronephrosis, and patient locates her pain to the low midline back, suggesting this may not be a ureteral stone. However if she becomes septic we will
treat it as such with ureteral stent
- Discussed management options for presumed stone including OR for stent placement and outpatient trial of passage. I am concerned that with her interstitial cystitis she will not tolerate a stent and require inpatient hospitalization for pain until
her stone can be safely removed. She shares my concern and would prefer to try to pass the stone if possible.
- Stable for discharge from urology standpoint for outpatient trial of passage with tamsulosin, PO pain control, and straining urine with all voids
- Discharge with oral antibiotic per culture results for additional 7 days
- Will schedule outpatient follow up early next week to discuss next steps if stone not passed
Diagnosis
-
Date of Service: November 02, 2023
-
Patient Diagnosis:
L ureteral stone
Interstitial cystitis
UTI
Post Op Day:
Subjective
-
Some intermittent pain overnight that responds well to pain medication
Objective
-
Vital Signs
Temp Pulse Resp BP Pulse Ox
98.1 F 76 18 121/80 98
11/02/23 08:00 11/02/23 08:51 11/02/23 08:00 11/02/23 08:51 11/02/23 08:00
Intake and Output
11/01/23 11/02/23 11/03/23
06:59 06:59 06:59
Intake Total 2400 / 2400 2400 / 2400
Output Total 1650 / 1650 1500 / 1500
Balance 750 / 750 900 / 900
Intake:
Oral fluids 1200 / 1200 2400 / 2400
IV fluids (Total) 1200 / 1200
Output:
Urine, Voided 1650 / 1650 1500 / 1500
Other:
Number of approximated MODERATE 4 2
amounts of urine
Laboratory Results
11/02/23 07:18
11/02/23 07:18
Physical Exam
-
General - well developed, well nourished, no acute distress
Chest - clear
Abdomen - soft, non-tender
--- NOTE | 2023-11-02 13:03 | CM ---
CM met with Patt today in anticipation of discharge to home; d/c order pending. She will return home with her parents at discharge.
Family with provide transport home. Patt denies any needs at this time.
Plan: Discharge to home with no needs.
PCP: May Kelsey
Pharmacy: [facility]
[2023-11-02] MEDS: AUGMENTIN 875 MG/125 MG 1 TABLET PO (13:20)
[2023-11-02] MEDS: SENOKOT-S 1 TABLET PO (13:20)
[2023-11-02] MEDS: TYLENOL 650 MG PO (15:59)
[2023-11-02 16:00] VITALS: BP 129/76
--- NOTE | 2023-11-02 16:37 | W.DCSUMMARY ---
Discharge Summary
Discharge Data
Date of Admission: 11/01/23
Date of Discharge: 11/02/23
-
Pending Results: No
Discharge Plan
-
Patient Disposition: Home (Routine Discharge)
Discharge Diagnosis/Procedures: Interstitial Cystitis
Complicated Urinary Tract Infection
Suspected Left Ureter Stone
Migraine
PCOS
Anxiety
Mild Iron Deficiency Anemia
Condition: Fair
Diet: Regular
Activity: As tolerated
Driving Restrictions: No driving while on opiate pain meds such as oxy
Bathing Restrictions: None
Blood Work: Please repeat CBC with primary care provider in 1 week of discharge.
Repeat Iron studies with primary care provider in 1 month of discharge.
Activity Restrictions/Additional Instructions:
Follow up with your primary care provider and urologist in 1 week of discharge.
ferrous sulfate 325 mg (65 mg iron) tablet PO DAILY prescribed for mild iron deficiency anemia.
oxycodone 5 mg tablet 5 mg PO 4x a day as needed for moderate severe pain, 5 days supply prescribed
polyethylene glycol 3350 17 gram oral powder packet (HealthyLax) 17 g PO DAILY as needed for constipation 14 days (available over the counter)
sennosides 8.6 mg-docusate sodium 50 mg tablet (Stool Softener-Laxative) 1 tab PO twice a day as needed for constipation 14 days (available over the counter)
amoxicillin 875 mg-potassium clavulanate 125 mg tablet 1 tab PO twice a day for 7 days has been prescribed for urinary tract infection. A probiotic has also been prescribed to promote gut health while on broad spectrum antibiotic. However,
probiotics are also available over the counter.
Please take medications as prescribed/recommended and follow up with primary care provider and/or other healthcare provider involved in your care for refills and/or further adjustment to your medication regimen as necessary.
Referrals:
Poonam Moura DO [Active] - in one week
May Kelsey DO [Family Provider] - in one week
Prescriptions:
New
ferrous sulfate [FeroSul] 325 mg (65 mg iron) Tablet
325 mg PO DAILY 30 Days Qty: 30 0RF
amoxicillin-pot clavulanate 875-125 mg Tablet
1 tab PO Q12 7 Days Qty: 14 0RF
Saccharomyces boulardii 250 mg Capsule
250 mg PO DAILY 7 Days Qty: 7 0RF
polyethylene glycol 3350 [HealthyLax] 17 gram Powder In Packet
17 g PO DAILYPRN PRN (Reason: constipation) 14 Days Qty: 14 0RF
sennosides-docusate sodium [Stool Softener-Laxative] 8.6-50 mg Tablet
1 tab PO BIDPRN PRN (Reason: constipation) 14 Days Qty: 28 0RF
oxycodone 5 mg tablet
5 mg PO QID PRN (Reason: moderate severe pain) 5 Days Qty: 20 0RF
Continued
ondansetron HCl 4 MG tablet
4 mg PO PRN PRN (Reason: nausea)
clonazepam 0.25 MG tablet
0.5 mg PO PRN PRN (Reason: with olanzapine & migraines)
olanzapine 2.5 MG tablet
0.5 mg PO PRN PRN (Reason: migraines)
amitriptyline 50 MG tablet
50 mg PO HS
tamsulosin 0.4 MG capsule
0.4 mg PO DAILY
metformin 1,000 MG tablet
1,000 mg PO BID
gabapentin 300 MG capsule
400 mg PO TID
hydroxyzine HCl 25 MG tablet
50 mg PO HS
topiramate 100 MG tablet
200 mg PO HS
duloxetine 60 MG capsule,delayed release(DR/EC)
60 mg PO DAILY
mirabegron [Myrbetriq] 50 MG tablet extended release 24 hr
50 mg PO DAILY
Emgality Pen 120 MG/ML pen injector
120 mg SQ MONTHLY
omeprazole 20 MG capsule,delayed release(DR/EC)
40 mg PO DAILY
melatonin 10 MG tablet
10 mg PO HS
Famotidine 10 MG Tablet
10 mg PO DAILY
Migrinal Nasal [place]
1 spray inhalation PRN PRN (Reason: migraines)
acetaminophen 500 mg Tablet
650 mg PO Q6H PRN (Reason: pain)
albuterol sulfate 90 mcg/actuation Hfa Aerosol Inhaler
2 puff INHALATION Q6H PRN (Reason: SOB)
Patient Comments:
a few weeks ago per patient.
Dulera 200-5 mcg/actuation Hfa Aerosol Inhaler
2 puff INHALATION Q12H
montelukast 10 mg Tablet
10 mg PO HS
almotriptan malate 12.5 mg Tablet
12.5 mg PO BID PRN (Reason: migraines)
Nurtec ODT 75 mg Tablet,Disintegrating
75 mg PO ONCE PRN (Reason: migraine)
Medical Cannabis
1 gummy PO PRN PRN (Reason: pain )
atorvastatin 10 mg Tablet
10 mg PO HS
phenazopyridine [Pyridium] 200 mg Tablet
200 mg PO TID
spironolactone 25 mg Tablet
25 mg PO DAILY
mexiletine 150 mg Capsule
150 mg PO .AM
mexiletine 150 mg Capsule
300 mg PO .DINNER TIME
nabumetone 500 mg Tablet
500 mg PO BID PRN (Reason: migraines)
atomoxetine 60 mg Capsule
60 mg PO DAILY
Vitamin D3
1 dose PO DAILY
Changed
diazepam 5 MG tablet
5 mg PO TIDPRN PRN (Reason: interstitial cystitis) Qty: 0 0RF
Discontinued
oxycodone-acetaminophen [Percocet] 7.5-325 mg Tablet
1 tab PO Q6H PRN (Reason: pain)
Discharge Orders:
Discharge Patient (As Directed); Ordered 11/02/23
Ordered By: Ann Graham
Discharge Date and Time
Print Language: LATVIAN
== END 2023-11-02 17:30 | disposition home or self-care (01) | DRG 690 ==
LOC: 4 EAST ACU 08:16
PROVIDERS: Internal Medicine; Physician Assistant; ADMITTING PHYSICIAN Internal Medicine; ATTENDING PHYSICIAN Internal Medicine; CONSULT PHYSICIAN Urology; EMERGENCY PHYSICIAN Emergency Medicine; FAMILY PHYSICIAN Family Medicine
DX: N30.10 Interstitial cystitis (chronic) without hematuria (principal); Z16.11 Resistance to penicillins; N20.1 Calculus of ureter; J45.909 Unspecified asthma, uncomplicated; B96.20 Unspecified Escherichia coli [E. coli] as the cause of diseases classified elsewhere; F41.9 Anxiety disorder, unspecified; E28.2 Polycystic ovarian syndrome; G43.909 Migraine, unspecified, not intractable, without status migrainosus; D50.9 Iron deficiency anemia, unspecified; Z88.8 Allergy status to other drugs, medicaments and biological substances; Z91.040 Latex allergy status; Z79.899 Other long term (current) drug therapy; Z79.84 Long term (current) use of oral hypoglycemic drugs; Z79.51 Long term (current) use of inhaled steroids
CPT/HCPCS: 51798; 74176; 80048; 80053; 81003; 81015; 82607; 82746; 83540; 83550; 83735; 84100; 84703; 85025; 85027; 87077; 87086; 87186; 94640; 96374; 96375; 96376; 99284

== ENCOUNTER 2023-11-15 06:37 | Day surgery (SDC) | payer OTHER, SELFPAY ==
[2023-11-15] VITALS (10 sets, daily range): BP systolic 124–140; BP diastolic 70–93; BMI 27.5
[2023-11-15] MEDS: NORMOSOL-R 1000 IV (10:10)
[2023-11-15] MEDS: DILAUDID 0.5 MG IV (12:33)
[2023-11-15] MEDS: DILAUDID 0.25 MG IV (13:05)
[2023-11-15] MEDS: ROXICODONE 5 MG PO (14:32)
== END 2023-11-15 14:43 | disposition home or self-care (01) ==
LOC: SDS 06:37
PROVIDERS: ATTENDING PHYSICIAN Urology
DX: N30.10 Interstitial cystitis (chronic) without hematuria (principal); N39.41 Urge incontinence
CPT/HCPCS: 52287; 52260; 87086; J0585

== ENCOUNTER 2024-10-21 17:59 | Emergency (ER) | payer OTHER, SELFPAY ==
[2024-10-21 18:02] VITALS: BP 128/88
--- NOTE | 2024-10-21 19:23 | ED.GENMED ---
History of Present Illness
<Keron Cevallos MD, Resident - Last Filed: 10/21/24 21:20>
General
Chief Complaint: Breathing Problem
Source: patient
Exam Limitations: none
Time Seen by Provider: 10/21/24 19:13
Nursing documentation reviewed up to this point in time: agreed with
History of Present Illness
History of Present Illness:
This is a 44-year-old female presenting today with her father in the emergency department with complaints of shortness of breath and wheezing. She has a known history of asthma and seasonal allergies and currently on med montelukast and uses rescue
inhaler as needed. 2 days ago she had a hydrodistention procedure with Botox for her bladder dysfunction, during the procedure she developed trouble breathing which persisted and prompted her visit to the emergency department. Denies any fevers or
chills, denies any chest pain, denies recent sickness, denies nausea/vomiting, denies changes in urinary or bowel habits. Denies any recent changes in the medication.
Patient received her asthma medications from PCP.
Past History
<Keron Cevallos MD, Resident - Last Filed: 10/21/24 21:20>
Past History
ED Past Medical History: Asthma, GERD, Other (Back pain, migraines, neck pain, peripheral neuropathy, lumbar radiculopathy.), Other (Right ABD, PCOS, endometriosis, thyroid nodule, history of C. difficile) and Other (ADHD, anxiety, depression, panic
disorder, PTSD)
ED Past Surgical History: Tonsilectomy and Urological (Laparoscopic is fluoroscopy, resident team extraction, cystoscopy, LEEP procedure in 2001, hysterectomy 2021, hydrodistention)
Patient has exhibited threatening behavior?: No
Social History
Tobacco: Former smoker
Alcohol: None
Drug: Marijuana (Medical marijuana)
Living: with family
Family History
Family History: Asthma
Review of Systems
<Keron Cevallos MD, Resident - Last Filed: 10/21/24 21:20>
Review of Systems
Constitutional: Denies fever or chills
EENT: Denies sore throat
Respiratory: Reports trouble breathing; Denies cough
Cardiac: Denies chest pain
ABD/GI: Denies abdominal pain, nausea or vomiting
: Denies dysuria
Musculoskeletal: Denies joint pain
Skin: Denies itching
Neurological: Denies dizzy or headache
Endocrine: Denies polyuria
Hematologic/Lymphatic: Denies bleeding
Phy Exam
<Keron Cevallos MD, Resident - Last Filed: 10/21/24 21:20>
General Physical Exam
General Presentation: no apparent distress
General age: appears stated age
General Skin: warm
General Habitus: normal
General Mental: alert
General Hydration: appears well hydrated
Cardiovascular Exam
Cardiovascular Exam: regular rate/rhythm and no murmur
Pulmonary Exam
Pulmonary Exam: lungs clear, no respiratory distress, no rales, chest non tender, no crackles, no wheezing and no cough
Gastrointestinal Exam
Gastrointestinal Exam: normal bowel sounds, non tender, soft and non distended
Musculoskeletal Exam
Musculoskeletal Exam: full ROM
Course
<Keron Cevallos MD, Resident - Last Filed: 10/21/24 21:20>
Orders/Labs/Results
Orders:
Orders
10/21/24 18:04
Chest [CR Chest - 2 Views ] Urgent
Comment:
Reason For Exam: SOB
10/21/24 19:57
Dexamethasone Pf [Decadron] 10 mg PO NOW STA
Vital Signs
Initial and Last Documented VS:
Initial Vital Signs
Temp Pulse Resp BP Pulse Ox
98.0 F 93 18 128/88 97
10/21/24 18:02 10/21/24 18:02 10/21/24 18:02 10/21/24 18:02 10/21/24 18:02
Last Documented Vital Signs
Temp Pulse Resp BP Pulse Ox
98.0 F 83 16 121/68 94
10/21/24 18:02 10/21/24 20:11 10/21/24 20:11 10/21/24 20:11 10/21/24 20:11
<Shukri Dickey, DO - Last Filed: 10/21/24 20:05>
Orders/Labs/Results
Orders:
Orders
10/21/24 18:04
Chest [CR Chest - 2 Views ] Urgent
Comment:
Reason For Exam: SOB
10/21/24 19:57
Dexamethasone Pf [Decadron] 10 mg PO NOW STA
Vital Signs
Initial and Last Documented VS:
Initial Vital Signs
Temp Pulse Resp BP Pulse Ox
98.0 F 93 18 128/88 97
10/21/24 18:02 10/21/24 18:02 10/21/24 18:02 10/21/24 18:02 10/21/24 18:02
Last Documented Vital Signs
Temp Pulse Resp BP Pulse Ox
98.0 F 83 16 121/68 94
10/21/24 18:02 10/21/24 20:11 10/21/24 20:11 10/21/24 20:11 10/21/24 20:11
<Keron Cevallos MD, Resident - Last Filed: 10/21/24 21:20>
MDM/Problems Addressed
Differential Diagnosis Includes:
Asthma flareup vs acute bronchitis vs other infectious causes
MDM/Problems Addressed:
Chest x-ray with no acute cardiopulmonary processes.
Patient is returned for wheezing will give 1 dose of Decadron in the ER today.
Decision with the patient for home discharge. Patient agreed with the plan and voices understanding.
Reviewed return precautions. Advised patient to follow-up with PCP.
<Keron Cevallos MD, Resident - Last Filed: 10/21/24 21:20>
*Pulse Oximetry
SaO2: 97
Oxygen Mode of Delivery: Room air
Patient hypoxic: no
*Critical Care Note
Total Time (30-74mins, 75-104mins- exclusive of procedures): Not Applicable
ED Attending Note
<Keron Cevallos MD, Resident - Last Filed: 10/21/24 21:20>
-
Portions of this chart may have been created with voice recognition software.� Occasional wrong word or��sound alike� substitutions may have occurred due to the inherent limitations of voice recognition software.
<Shukri Dickey, DO - Last Filed: 10/21/24 20:05>
ED Attending Note
Patient seen and examined by attending physician: Yes
I performed a history and physical exam of patient and discussed management with resident, I reviewed resident's note and agree with documented findings and plan of care.: Yes
ED Attending Note:
I have seen and evaluated the patient with a [id number] encounter. I have spoken to the resident and involved in the medical history, the physical exam, medical decision making.
Evaluation and management service: agree unless noted differently below.
Results interpretation: agree unless noted differently below.
Focused HPI: 44-year-old female presenting for improving wheezing. Patient has a history of asthma. She had a recent procedure where she had Botox adjusted in her bladder to help with her interstitial cystitis. Father at bedside does acknowledge
that there was significant wheezing prior to arrival
Physical exam: Sitting bed comfortably. Lungs appear clear
Medical Decision Making: Chest x-ray clear. Discussed possible aspiration versus asthma flare versus mucous plugging. Will give one-time dose of Decadron
Discharge Plan
Departure
Patient Disposition: Home (Routine Discharge)
Date of Disposition: 10/21/24
Time of Disposition: 20:02
Patient with high blood pressure during this ER visit?: Yes
Discharge Problem:
Wheezing, Shortness of breath
Instructions: Asthma, Adult (DC)
Prescriptions:
No Action
ondansetron HCl 4 MG tablet
4 mg PO PRN PRN (Reason: nausea)
clonazepam 0.25 MG tablet
0.5 mg PO PRN PRN (Reason: with olanzapine & migraines)
olanzapine 2.5 MG tablet
0.5 mg PO PRN PRN (Reason: migraines)
amitriptyline 50 MG tablet
50 mg PO HS
tamsulosin 0.4 MG capsule
0.4 mg PO DAILY
metformin 1,000 MG tablet
1,000 mg PO BID
gabapentin 300 MG capsule
400 mg PO TID
hydroxyzine HCl 25 MG tablet
50 mg PO HS
topiramate 100 MG tablet
200 mg PO HS
duloxetine 60 MG capsule,delayed release(DR/EC)
60 mg PO DAILY
mirabegron [Myrbetriq] 50 MG tablet extended release 24 hr
50 mg PO DAILY
omeprazole 20 MG capsule,delayed release(DR/EC)
40 mg PO DAILY
melatonin 10 MG tablet
10 mg PO HS
Famotidine 10 MG Tablet
40 mg PO DAILY
Migrinal Nasal [place]
1 spray inhalation PRN PRN (Reason: migraines)
acetaminophen 500 mg Tablet
650 mg PO Q6H PRN (Reason: pain)
albuterol sulfate 90 mcg/actuation Hfa Aerosol Inhaler
2 puff INHALATION Q6H PRN (Reason: SOB)
Patient Comments:
a few weeks ago per patient.
Dulera 200-5 mcg/actuation Hfa Aerosol Inhaler
2 puff INHALATION Q12H
montelukast 10 mg Tablet
10 mg PO HS
almotriptan malate 12.5 mg Tablet
12.5 mg PO BID PRN (Reason: migraines)
Nurtec ODT 75 mg Tablet,Disintegrating
75 mg PO ONCE PRN (Reason: migraine)
Medical Cannabis
1 gummy PO PRN PRN (Reason: pain )
atorvastatin 10 mg Tablet
10 mg PO HS
phenazopyridine [Pyridium] 200 mg Tablet
200 mg PO TID
spironolactone 25 mg Tablet
25 mg PO DAILY
mexiletine 150 mg Capsule
150 mg PO .AM
mexiletine 150 mg Capsule
300 mg PO .DINNER TIME
nabumetone 500 mg Tablet
500 mg PO BID PRN (Reason: migraines)
atomoxetine 60 mg Capsule
80 mg PO DAILY
Vitamin D3
1 dose PO DAILY
ferrous sulfate [FeroSul] 325 mg (65 mg iron) Tablet
325 mg PO DAILY 30 Days Qty: 30 0RF
Saccharomyces boulardii 250 mg Capsule
250 mg PO DAILY 7 Days Qty: 7 0RF
polyethylene glycol 3350 [HealthyLax] 17 gram Powder In Packet
17 g PO DAILYPRN PRN (Reason: constipation) 14 Days Qty: 14 0RF
sennosides-docusate sodium [Stool Softener-Laxative] 8.6-50 mg Tablet
1 tab PO BIDPRN PRN (Reason: constipation) 14 Days Qty: 28 0RF
diazepam 5 MG tablet
5 mg PO TIDPRN PRN (Reason: interstitial cystitis) Qty: 0 0RF
Referrals:
May Kelsey DO [Family Provider, General] - Follow up in 1 week
Activity Restrictions/Additional Instructions:
You were seen in the [facility] emergency department with concerns of wheezing and trouble breathing. While you are in the hospital we performed a chest x-ray which showed no acute cardiopulmonary process. You have received 1 dose of
Decadron 10 mg. Please follow-up with your family doctor within 1 week. Please return to the emergency department if you develop any chest pain, gasping for air or high breathing rate, or any other worrisome symptoms.
Interventions
Interventions:
*Risk Screen - Suicide Last Done: 10/21/24 18:02
*General Assessment Last Done: 10/21/24 18:02
*Neglect/Abuse Screening Last Done: 10/21/24 18:02
*Nursing Disposition Last Done: 10/21/24 20:17
ED- Pulmonary Assessment Last Done: 10/21/24 20:09
Discharge Date and Time
Discharge Date/Time: 10/21/24 20:17
Print Language: MONTENEGRIN
[2024-10-21] MEDS: DECADRON 10 MG PO (20:09)
[2024-10-21 20:11] VITALS: BP 121/68
== END 2024-10-21 20:17 | disposition home or self-care (01) ==
LOC: EMR 17:59
PROVIDERS: EMERGENCY PHYSICIAN Student in an Organized Health Care Education/Training Program; FAMILY PHYSICIAN Family Medicine
DX: J45.909 Unspecified asthma, uncomplicated (principal); R06.02 Shortness of breath; Z87.891 Personal history of nicotine dependence
CPT/HCPCS: 99283; 71046

== ENCOUNTER 2024-11-16 08:51 | Inpatient (IN) | payer OTHER, SELFPAY ==
[2024-11-14 22:52] VITALS: BP 136/98
[2024-11-14 23:40] VITALS: BP 142/88
[2024-11-14 23:41] VITALS: BMI 30.4
[2024-11-15] VITALS (8 sets, daily range): BP systolic 116–140; BP diastolic 78–94; BMI 30.2
[2024-11-15 00:09] LABS: Hematocrit 41.8 % (37.0-47.0); Hemoglobin 14.3 g/dL (12.0-16.0); Mean Corp Hgb Conc. 34.2 g/dL (33.0-37.0); Mean Corpuscular Volume 90.7 fL (81.0-99.0); Nucleated Red Blood Cells % 0 %; Platelet Count 237 10^3/uL (130-400); Red Cell Dist. Width 13.9 % (11.5-14.5)
--- NOTE | 2024-11-15 00:11 | ED.GENMED ---
History of Present Illness
General
Chief Complaint: Abdominal Pain
Source: patient
Exam Limitations: none
Time Seen by Provider: 11/15/24 00:06
Nursing documentation reviewed up to this point in time: agreed with
History of Present Illness
History of Present Illness:
Note:
CHIEF COMPLAINT(S)
Abdominal pain and nausea.
HISTORY OF PRESENT ILLNESS
The patient is a 44-year-old female with a history of interstitial cystitis, frequent urinary tract infections, GERD, endometriosis s/p hysterectomy presents with symptoms that began today, reporting waking up with abdominal discomfort. Initially,
the abdominal pain was mild, but as the day progressed, the pain intensified, particularly around the belly button extending to the right side and the back. The patient describes this abdominal pain as worse than her usual symptoms, with a current
severity greater than her typical experience with interstitial cystitis. Additionally, she experienced two episodes of vomiting today, stating that eating exacerbated the pain.
Earlier, she contacted her urologists office and was advised to drop off a urine sample and start antibiotics, but she has not yet initiated the antibiotics. She also reports a history of episodic nausea and upset stomach associated with
interstitial cystitis flare-ups and has regular follow-ups with a urologist. The patient attended a physical therapy appointment today but felt worse afterward.
She reports no fever has been checked but experiences chills when the air conditioning is on. The patient has no known allergies to pain medications and has not received any medication for nausea at this visit. The pain was significant enough that
she almost called an ambulance and required assistance from her parents to reach the medical facility. She denies travel outside the country recently. She denies any diarrhea. She denies any history of alcohol use disorder. She denies any dark
tarry stools. She denies any hematemesis.
PAST MEDICAL AND SURGICAL HISTORY
- Interstitial cystitis
- Hysterectomy
- Chronic kidney stone
- Migraines
- Neuropathy in her feet confirmed as small fiber neuropathy
CHRONIC MEDICAL CONDITIONS SIGNIFICANTLY AFFECTING CARE
- Interstitial cystitis
- Migraines
- Small fiber neuropathy
EXTERNAL RECORDS REVIEWED
The patient indicated a history with a urologist, mentioning consistent monitoring and management of a longstanding kidney stone visible on past X-rays.
PHYSICAL EXAM
Nursing notes reviewed and vital signs reviewed.
General: Patient is well appearing and in no acute distress; non-toxic
Skin: Warm and dry, no rashes or lesions
Head: Normocephalic, atraumatic
Eyes: Sclera non-icteric. EOMs intact.
Cardiac: Regular rate and rhythm, no murmurs
Peripheral Vascular: No lower extremity swelling or edema
Pulm: Normal respiratory effort, no wheezes, rales, rhonchi
Abdomen: Periumbilical abdominal tenderness to palpation, no CVA tenderness
Neuro: CN II-XII intact, no focal neurologic deficits.
Psychiatric: Appropriate mood and affect.
PLAN
- Initiate pain management possibly with Ketorolac.
- Administer antiemetic for nausea.
- Ensure hydration of the patient.
- Obtain a urine sample for analysis.
- Perform a Computed Tomography scan to rule out kidney infection and any signs of an acute abdominal infection.
DIFFERENTIAL DIAGNOSIS
The Differential Diagnosis includes, in no particular order and is not limited to:
1. Urinary Tract Infection.
2. Acute Pyelonephritis.
3. Exacerbation of Interstitial Cystitis.
4. Nephrolithiasis (Kidney Stones).
5. Gastritis or Peptic Ulcer Disease.
6. Appendicitis.
7. Gastroenteritis.
8. Biliary colic.
9. Pancreatitis.
10. Diverticulitis.
CHART REVIEW
Reviewed external medical summary, patient was seen on October 23, 2024 for urge incontinence she had procedure for this and has been doing well
Reviewed visit from September 28, 2024 patient scheduled for cystoscopy with hydrodistention possible bladder biopsy in the operating room
Reviewed ER physician documentation from 10/21/2024 patient seen for shortness of breath and wheezing she was suspected to have an asthma flare
Reviewed discharge summary from 11/02/2023 patient seen for suspected. Reports no urology saw her implants were no stents at this time
MDM/DISPOSITION
44-year-old female with past medical history of GERD, IBS, interstitial cystitis presents emergency department today with concerns of abdominal pain, nausea vomiting, and urinary symptoms. She states that this feels similar to previous UTIs. She
has not had any fevers or chills. On exam she is well-appearing no acute distress nontoxic however does have primary local tenderness to palpation. Labs reviewed, no leukocytosis. Chemistry reviewed no signs of severe dehydration. Her LFTs were
found to be critically elevated with her at AST of 2033 and ALT 1198. Hepatitis panel sent off. She brown normal total bilirubin. Her CAT scan does not show any evidence of obstructive uropathy. It does not show acute cystitis. No other acute
findings. Gallbladder unremarkable. Patient will require admission for GI consult and further symptomatic control. Patient will be given dose of antibiotics for UTI. Patient referred for admission.
Past History
Past History
ED Past Medical History: Asthma, GERD, Other (Back pain, migraines, neck pain, peripheral neuropathy, lumbar radiculopathy.), Other (Right ABD, PCOS, endometriosis, thyroid nodule, history of C. difficile) and Other (ADHD, anxiety, depression, panic
disorder, PTSD)
ED Past Surgical History: Tonsilectomy and Urological (Laparoscopic is fluoroscopy, resident team extraction, cystoscopy, LEEP procedure in 2001, hysterectomy 2021, hydrodistention)
Patient has exhibited threatening behavior?: No
Social History
Tobacco: Former smoker
Alcohol: None
Drug: Marijuana (Medical marijuana)
Living: with family
Family History
Family History: Asthma
Phy Exam
Physical Exam
Physical Exam:
see hpi
Course
Orders/Labs/Results
Orders:
Orders
11/14/24 23:57
Acetaminophen Urgent
Comment: ADD ON
Complete Blood Count/With Diff Urgent
Comprehensive Metabolic Panel Urgent
Creatine Phosphokinase Urgent
Comment: ADDED
Hepatitis A Antibody, Total Urgent
Comment: ADD ON
Hepatitis B Core Ab, Total Urgent
Comment: ADD ON
Hepatitis B Surface Antibody Urgent
Hepatitis B Surface Antigen Urgent
Comment: ADD ON
Hepatitis C Antibody Urgent
Lipase Urgent
Salicylate Urgent
Comment: ADD ON
11/15/24 00:19
0.9% Sodium Chloride 1000 ml [Nss] 1,000 ml IV BOLUS
Ketorolac [Toradol] 15 mg IV NOW STA
Ondansetron Injectable [Zofran] 4 mg IV NOW STA
11/15/24 00:20
Test Result ONCE
11/15/24 00:21
CT Abd/pelvis W Iv Cont Urgent
Comment:
Reason For Exam: periumbilical pain
11/15/24 00:37
, Urine Qualitative Screen [HCG, Urine Qualitative Screen] Urgent
Date Specimen was Collected: 11/15/24
Time Specimen was Collected: 00:36
Urinalysis Reflex To Culture Urgent
Date Specimen was Collected: 11/15/24
Time Specimen was Collected: 00:36
Urine Microscopic Reflex Cult Urgent
Urine Culture Urgent
TRACY Source: U
Specimen Description:
Date Specimen was Collected: 11/15/24
Time Specimen was Collected: 00:36
11/15/24 00:57
Add On- LAB Urgent
Tests Added?: cpk
11/15/24 01:01
Add On- LAB Urgent
Tests Added?: hepatitis panel
11/15/24 01:15
Hepatitis A IgM Antibody Urgent
Hepatitis B Core Ab, IgM Urgent
11/15/24 02:06
Add On- LAB Urgent
Tests Added?: tylenol and salilcylate level
11/15/24 02:43
HYDROmorphone [Dilaudid] 0.5 mg IV NOW STA
11/15/24 02:44
CeFAZolin 2 GRAM [Ancef] 2 grams in 10 ml IV NOW
Abnormal Lab Results
11/14/24 11/15/24
23:57 00:37
Absolute Neuts (auto) 8.0 H 10^3/uL
(1.4-6.5)
Absolute Lymphs (auto) 0.7 L 10^3/uL
(1.2-3.4)
Absolute Monos (auto) 0.8 H 10^3/uL
(0.1-0.6)
Neutrophils % 83.3 H %
(42.2-75.2)
Lymphocytes % 7.2 L %
(20.5-51.1)
Chloride 111 H mmol/L
(98-107)
Carbon Dioxide 19 L mmol/L
(22-30)
Glucose 114 H mg/dl
(70-99)
AST 2033 H* U/L
(14-36)
ALT 1198 H* U/L
(0-35)
Alkaline Phosphatase 175 H U/L
(38-126)
Creatine Kinase 211 H U/L
(30-135)
Ur Occult Blood Reflex 3+ A
(Negative)
Urine Nitrite (Reflex) Positive A
(Negative)
Leukocyte Esterase Rfl 3+ A
(Negative)
Urine WBC (Reflex) >100 A /HPF
(0-5)
Urine Bacteria (Reflex) Moderate A
(Negative)
Urine Albumin (Reflex) 2+ A
(Neg - Trace)
Salicylates < 1.0 L mg/dl
(2.0-20.0)
Acetaminophen < 10 L ug/ml
(10-30)
11/14/24 23:57
11/14/24 23:57
Vital Signs
Initial and Last Documented VS:
Initial Vital Signs
Temp Pulse Resp BP Pulse Ox
98 F 102 20 136/98 99
11/14/24 22:52 11/14/24 22:52 11/14/24 22:52 11/14/24 22:52 11/14/24 22:52
Last Documented Vital Signs
Temp Pulse Resp BP Pulse Ox
98 F 102 20 142/88 96
11/14/24 22:52 11/14/24 22:52 11/14/24 22:52 11/14/24 23:40 11/15/24 00:15
*Pulse Oximetry
SaO2: 95
Patient hypoxic: no
*Critical Care Note
Total Time (30-74mins, 75-104mins- exclusive of procedures): Not Applicable
ED Attending Note
-
Portions of this chart may have been created with voice recognition software.� Occasional wrong word or��sound alike� substitutions may have occurred due to the inherent limitations of voice recognition software.
Discharge Plan
Departure
Patient Disposition: Admit
Date of Disposition: 11/15/24
Time of Disposition: 02:50
Admit to: Med/Surg
Presentation/result/management discussed w/ accepting MD/DO: Hospitalist
Patient with high blood pressure during this ER visit?: Yes
Discharge Problem:
UTI (urinary tract infection), Elevated liver enzymes
Prescriptions:
No Action
ondansetron HCl 4 MG tablet
4 mg PO PRN PRN (Reason: nausea)
clonazepam 0.25 MG tablet
0.5 mg PO PRN PRN (Reason: with olanzapine & migraines)
olanzapine 2.5 MG tablet
0.5 mg PO PRN PRN (Reason: migraines)
amitriptyline 50 MG tablet
50 mg PO HS
tamsulosin 0.4 MG capsule
0.4 mg PO DAILY
metformin 1,000 MG tablet
1,000 mg PO BID
gabapentin 300 MG capsule
400 mg PO TID
hydroxyzine HCl 25 MG tablet
50 mg PO HS
topiramate 100 MG tablet
200 mg PO HS
duloxetine 60 MG capsule,delayed release(DR/EC)
60 mg PO DAILY
mirabegron [Myrbetriq] 50 MG tablet extended release 24 hr
50 mg PO DAILY
omeprazole 20 MG capsule,delayed release(DR/EC)
40 mg PO DAILY
melatonin 10 MG tablet
10 mg PO HS
Famotidine 10 MG Tablet
40 mg PO DAILY
Migrinal Nasal [place]
1 spray inhalation PRN PRN (Reason: migraines)
acetaminophen 500 mg Tablet
650 mg PO Q6H PRN (Reason: pain)
albuterol sulfate 90 mcg/actuation Hfa Aerosol Inhaler
2 puff INHALATION Q6H PRN (Reason: SOB)
Patient Comments:
a few weeks ago per patient.
Dulera 200-5 mcg/actuation Hfa Aerosol Inhaler
2 puff INHALATION Q12H
montelukast 10 mg Tablet
10 mg PO HS
almotriptan malate 12.5 mg Tablet
12.5 mg PO BID PRN (Reason: migraines)
Nurtec ODT 75 mg Tablet,Disintegrating
75 mg PO ONCE PRN (Reason: migraine)
Medical Cannabis
1 gummy PO PRN PRN (Reason: pain )
atorvastatin 10 mg Tablet
10 mg PO HS
phenazopyridine [Pyridium] 200 mg Tablet
200 mg PO TID
spironolactone 25 mg Tablet
25 mg PO DAILY
mexiletine 150 mg Capsule
150 mg PO .AM
mexiletine 150 mg Capsule
300 mg PO .DINNER TIME
nabumetone 500 mg Tablet
500 mg PO BID PRN (Reason: migraines)
atomoxetine 60 mg Capsule
80 mg PO DAILY
Vitamin D3
1 dose PO DAILY
ferrous sulfate [FeroSul] 325 mg (65 mg iron) Tablet
325 mg PO DAILY 30 Days Qty: 30 0RF
Saccharomyces boulardii 250 mg Capsule
250 mg PO DAILY 7 Days Qty: 7 0RF
polyethylene glycol 3350 [HealthyLax] 17 gram Powder In Packet
17 g PO DAILYPRN PRN (Reason: constipation) 14 Days Qty: 14 0RF
sennosides-docusate sodium [Stool Softener-Laxative] 8.6-50 mg Tablet
1 tab PO BIDPRN PRN (Reason: constipation) 14 Days Qty: 28 0RF
diazepam 5 MG tablet
5 mg PO TIDPRN PRN (Reason: interstitial cystitis) Qty: 0 0RF
Referrals:
May Kelsey DO [Family Provider, General]
Interventions
Interventions:
*Risk Screen - Suicide Last Done: 11/14/24 22:52
*General Assessment Last Done: 11/14/24 23:41
*Neglect/Abuse Screening Last Done: 11/14/24 22:52
*ED- Fall Risk Assessment Last Done: 11/14/24 23:41
*ED COVID-19 Vaccine History Last Done: 11/14/24 23:41
FN-[id number] Assessment Last Done: 11/14/24 23:41
Discharge Date and Time
Print Language: [id number]
[2024-11-15 00:29] LABS: Albumin 4.2 g/dl (3.5-5.0); Alkaline Phosphatase 175 U/L (38-126); Blood Urea Nitrogen 11 mg/dl (7-17); Calcium 8.8 mg/dl (8.4-10.2); Carbon Dioxide 19 mmol/L (22-30); Chloride 111 mmol/L (98-107); Estimated Creatinine Clearance 94 ml/min; Glucose 114 mg/dl (70-99); Lipase 121 U/L (23-300); Potassium 3.9 mmol/L (3.5-5.1); Sodium 139 mmol/L (135-145); Total Protein 6.8 g/dl (6.3-8.2); eGFR > 60.00
[2024-11-15] MEDS: NSS 1000 IV (00:30)
[2024-11-15] MEDS: TORADOL 15 MG IV (00:30)
[2024-11-15] MEDS: ZOFRAN 4 MG IV (00:31)
[2024-11-15 00:45] LABS: Urine Character Cloudy (Clear)
[2024-11-15 00:50] LABS: HCG, Urine Qualitative Screen Negative
[2024-11-15 00:53] LABS: Urine Red Blood Cell None Seen /HPF (0-2); Urine White Cell >100 /HPF (0-5)
[2024-11-15 00:56] LABS: ALT (SGPT) 1198 U/L (0-35); AST (SGOT) 2033 U/L (14-36)
[2024-11-15 02:45] LABS: Acetaminophen < 10 ug/ml (10-30); Salicylate < 1.0 mg/dl (2.0-20.0)
--- NOTE | 2024-11-15 02:54 | HPS.HSE ---
Family Physician
-
Family Physician: May Kelsey DO
Chief Complaint
-
Abdominal pain
History of Present Illness
This is a 43-year-old female was a past medical history of nephrolithiasis, interstitial cystitis, PCOS, asthma, migraine headaches, anxiety who presents to the emergency department with nausea vomiting abdominal and flank pain.
Patient reported that she arose today with new onset of symptoms. She read call physician reporting pelvic discomfort as well as some dysuria. She stated that she is on Linzess for IBS and has been having regular bowel movements up to 2-3 times a
day without the Linzess over the last 2 weeks. She stated that today she suddenly developed epigastric abdominal pain and as well as bilateral upper quadrant abdominal pain. She vomited twice that was nonbloody and nonbilious. After vomiting she
continued to have abdominal soreness. She denies having any diarrhea. She denies any fevers or chills. She reports that the pain is radiating to the right flank. She denies recent antibiotic use but she did submit her urine to her PMD for
analysis prior to coming to the emergency department. She she felt so much pain that she had to be helped to walk by family members today so she decided come to the emergency department.
Patient reported that she traveled to [place] over 1 week ago. There she only had 2 drinks. Denies alcohol otherwise. Patient report that she is no longer taking any Tylenol or Percocet. She has a number of medications for IBS, ADHD anxiety
depression panic attacks which have not changed recently. She denies any sick contacts. She denies any rash.
In the emergency department the patient was afebrile, blood pressure was 142/88, pulse rate of 110 and oxygen saturation of 98% on room air. CBC was unremarkable. Electrolytes were stable except for a bicarb of 19. LFTs were notable for AST of
over 2000, ALT of 1100, alk phos of 175 and a CPK of 211. UA was positive for nitrites leukocyte esterase bacteria and WBCs. CT of the abdomen with severe stool burden, no bowel obstruction, mild bladder wall thickening, nonobstructive right
nephrolithiasis with mild ureteral hyperenhancement. Tylenol level was negative. Salicylate was negative.
Medical History
Past Medical History
Past Medical History: Reports Asthma and Psychiatric (Anxiety)
Additional Past Medical History:
PCOS
Migraine LÓPEZ
Interstitial Cystitis
Past Surgical History: Reports None
Social History
Tobacco: Non-smoker
Alcohol: None
Drug: None
Personal: Single
Living: With Family
Employment: Disabled
Family History
Family History: Diabetes and Hypertension
Allergies / Home Medications
Allergies reflects when Allergies were last updated in [facility].
Home Medications with original date entered in [facility]
Allergy/Medication List:
Allergies
Allergy/AdvReac Type Severity Reaction Status Date / Time
dichloralphenazone Allergy Anaphylaxis Verified 05/10/23 08:15
[From Midrin]
isometheptene [From Midrin] Allergy Anaphylaxis Verified 05/10/23 08:15
Latex, Natural Rubber Allergy Anaphylaxis Verified 05/10/23 08:16
metoclopramide [From Reglan] Allergy Hives Verified 05/10/23 08:15
pollen extracts Allergy nasal Verified 05/10/23 08:15
congestion
prochlorperazine Allergy Hives Verified 05/10/23 08:15
[From Compazine]
Home Medications
amitriptyline 50 mg tablet 50 mg PO HS 12/29/19
clonazepam 0.5 mg tablet 0.5 mg PO PRN PRN with olanzapine & migraines 12/29/19
diazepam 5 mg tablet 5 mg PO PRN PRN interstitial cystitis 12/29/19
duloxetine 60 mg capsule,delayed release 60 mg PO DAILY 12/29/19
gabapentin 300 mg capsule 400 mg PO TID 12/29/19
hydroxyzine HCl 25 mg tablet 50 mg PO HS 12/29/19
metformin 1,000 mg tablet 1,000 mg PO BID 12/29/19
mirabegron 50 mg tablet,extended release 24 hr (Myrbetriq) 50 mg PO DAILY 12/29/19
olanzapine 2.5 mg tablet 0.5 mg PO PRN PRN migraines 12/29/19
ondansetron HCl 4 mg tablet 4 mg PO PRN PRN nausea 12/29/19
tamsulosin 0.4 mg capsule 0.4 mg PO DAILY 12/29/19
topiramate 100 mg tablet 200 mg PO HS 12/29/19
galcanezumab-gnlm 120 mg/mL subcutaneous pen injector (Emgality Pen) 120 mg SQ MONTHLY 08/22/20
Famotidine 10 mg PO DAILY 07/23/[address] [place] 1 spray inhalation PRN PRN migraines 07/23/21
melatonin 10 mg tablet 10 mg PO HS 07/23/21
omeprazole 20 mg capsule,delayed release 40 mg PO DAILY 07/23/21
acetaminophen 500 mg tablet 650 mg PO Q6H PRN pain 01/22/22
albuterol sulfate 90 mcg/actuation aerosol inhaler 2 puff inhalation Q6H PRN SOB 01/22/22
mometasone-formoterol HFA 200 mcg-5 mcg/actuation aerosol inhaler (Dulera) 2 puff inhalation Q12H 01/22/22
montelukast 10 mg tablet 10 mg PO HS 01/22/22
oxycodone-acetaminophen 7.5 mg-325 mg tablet (Percocet) 1 tab PO Q6H PRN pain 01/22/22
almotriptan malate 12.5 mg tablet 12.5 mg PO BID PRN migraines 01/27/22
rimegepant 75 mg disintegrating tablet (Nurtec ODT) 75 mg PO ONCE PRN migraine 06/26/22
Medical Cannabis 1 gummy PO PRN PRN pain 06/29/22
Vitamin D3 1 dose PO DAILY 05/05/23
atomoxetine 60 mg capsule 60 mg PO DAILY 05/05/23
atorvastatin 10 mg tablet 10 mg PO HS 05/05/23
mexiletine 150 mg capsule 150 mg PO .AM 05/05/23
mexiletine 150 mg capsule 300 mg PO .DINNER TIME 05/05/23
nabumetone 500 mg tablet 500 mg PO BID PRN migraines 05/05/23
phenazopyridine 200 mg tablet (Pyridium) 200 mg PO TID 05/05/23
spironolactone 25 mg tablet 25 mg PO DAILY 05/05/23
Review of Systems
-
History Source: Patient
Constitutional: Reports No Symptoms
EENT: Reports No Symptoms
Respiratory: Reports No Symptoms
Cardiac: Reports No Symptoms
Abdomen/GI: Reports Abdominal Pain and Nausea
: Reports Dysuria, Frequency, Flank Pain and Urgency
Musculoskeletal: Reports No Symptoms
Skin: Reports No Symptoms
Neurological: Reports No Symptoms
Endocrine: Reports No Symptoms
Hematologic/Lymphatic: Reports No Symptoms
Psych: Reports No Symptoms
Physical Exam
Vital Signs
Vital Signs
Temp Pulse Resp BP Pulse Ox
98 F 102 20 142/88 96
11/14/24 22:52 11/14/24 22:52 11/14/24 22:52 11/14/24 23:40 11/15/24 00:15
Physical Exam
General: Well Developed, Well Nourished, No Apparent Distress and Conversant
HEENT: NormoCephalic, Anicteric, Moist mucous membranes, Atraumatic and PERRLA
Respiratory: Clear
Cardiac: S1/S2 and Regular Rhythm
Breast: Deferred by me
GI: Soft, Non Distended, Normal Bowel Sounds and Tender
Rectal: Deferred by Provider
Genito-urinary: Costovertebral angle tend
Musculoskeletal: No Clubbing, No Cyanosis and No Edema
Skin: Warm and Dry
Neuro: AO x 3
Hematologic/Lymphatic: No Lymphadenopathy
Psych: Calm
Laboratory Results
-
11/14/24 23:57
11/14/24 23:57
Laboratory Results
Total Bilirubin 0.7 mg/dl (0.2-1.3) 11/14/24 23:57
AST 2033 U/L (14-36) H* 11/14/24 23:57
ALT 1198 U/L (0-35) H* 11/14/24 23:57
Alkaline Phosphatase 175 U/L (38-126) H 11/14/24 23:57
Lipase 121 U/L (23-300) 11/14/24 23:57
Data Reviewed
-
CT Scan: Report Reviewed by me
Lab Data: Labs Reviewed by me
Old Records: Reviewed
Impression/Plan
-
IMPRESSION:
44-year-old with past medical history of IBS, depression, anxiety with panic attacks, ADHD, GERD, asthma, chronic interstitial cystitis presenting to the emergency emergency department with abdominal pain and urinary symptoms. She does have some
right-sided flank pain as well. UA is positive and consistent with UTI this time with nitrites bacteria and leukocyte esterase as well as WBCs. She is afebrile and does not appear to be sepsis. She has no urinary obstruction. In addition she has
unexplained transaminitis. Patient does not drink alcohol. She has no new medications. She is not on Tylenol. She has no ingestions as far as we can tell. She has no recent insect bites.
PLAN:
Cystitis -suspect reaction right chronic interstitial cystitis
- Urine sent
- Start cefazolin for now
- Continue Pyridium
- Continue diazepam for spasm
- Continue OR tamsulosin and mybetriq
Transaminitis -marked elevation of ALT AST and alk phos without elevation in bilirubin. CT of the abdomen pelvis was negative. Tylenol level was negative. Salicylate level was negative.
- viral hepatitis panel sent
- check inr and ammonia level
- hold statin for now
- suspect acute viral hepatitis more than drug induced or autoimmune
- GI consultation
Anxiety/IBS
- continue her tompamax, mexiletine, buspar and hydroxyzine
- holding linze per patient
DVT PPX - lovenox sq
Code status - Full code
[2024-11-15] MEDS: DILAUDID 0.5 MG IV ×2 (03:30→13:20)
[2024-11-15] MEDS: ANCEF 10 IV (03:30)
--- NOTE | 2024-11-15 03:30 | EDRN ---
Report received, introduced myself to patient and medicated, Dr. Qureshi was in to do admission orders
--- NOTE | 2024-11-15 06:08 | PTCARENOTE ---
Received pt from ER into 2247. Pt is AAOx3 ambulates independently denies n/v/d at this time. POC was discussed with pt. Call longoria within reach.
[2024-11-15 06:12] LABS: Hematocrit 39.1 % (37.0-47.0); Hemoglobin 13.0 g/dL (12.0-16.0); INR 1.01; Mean Corp Hgb Conc. 33.2 g/dL (33.0-37.0); Mean Corpuscular Volume 91.4 fL (81.0-99.0); PT 13.6 Sec (11.4-14.6); Platelet Count 241 10^3/uL (130-400); Red Cell Dist. Width 13.6 % (11.5-14.5)
[2024-11-15 06:16] LABS: Ammonia 24 umol/L (9-30)
[2024-11-15 06:37] LABS: Albumin 3.7 g/dl (3.5-5.0); Alkaline Phosphatase 157 U/L (38-126); Blood Urea Nitrogen 11 mg/dl (7-17); Calcium 8.4 mg/dl (8.4-10.2); Carbon Dioxide 20 mmol/L (22-30); Chloride 112 mmol/L (98-107); Estimated Creatinine Clearance 107 ml/min; GGTP 397 U/L (12-43); Glucose 95 mg/dl (70-99); Magnesium 1.8 mg/dl (1.6-2.3); Potassium 3.9 mmol/L (3.5-5.1); Sodium 138 mmol/L (135-145); Total Protein 6.1 g/dl (6.3-8.2); eGFR > 60.00
[2024-11-15 06:41] LABS: ALT (SGPT) 994 U/L (0-35); AST (SGOT) 1192 U/L (14-36)
[2024-11-15] MEDS: ADVAIR HFA 230/21 MCG INHALER 2 PUFF INH ×2 (08:10→19:27)
[2024-11-15] MEDS: NEURONTIN 600 MG PO ×2 (08:13→20:01)
[2024-11-15] MEDS: MYRBETRIQ EXTENDED RELEASE 50 MG PO (08:13)
[2024-11-15] MEDS: PEPCID 40 MG PO (08:13)
[2024-11-15] MEDS: FLOMAX 0.4 MG PO (08:13)
[2024-11-15] MEDS: MEXITIL 150 MG PO ×2 (08:13→20:01)
[2024-11-15] MEDS: ALDACTONE 25 MG PO (08:13)
[2024-11-15] MEDS: PROTONIX 40 MG PO (08:14)
[2024-11-15] MEDS: TORADOL 10 MG IV ×2 (08:19→17:41)
--- NOTE | 2024-11-15 09:31 | CON.GI ---
Addendum entered and electronically signed by Janell Haque MD 11/15/24 17:22:
I saw and examined the patient.
The resident's note was reviewed and I agree with the note.
Comment: 44-year-old female with history of interstitial cystitis, history of nephrolithiasis, migraine headaches, endometriosis presenting with complaints of epigastric sharp burning pain which woke her up from sleep at 6 AM yesterday, radiating to
the right flank and both upper quadrants, no previous similar episodes. Some nausea but no vomiting. She has history of chronic reflux and chronic constipation, she follows up with Dr. Alton Talavera at [facility]. History of GERD, takes
omeprazole 40 mg daily, had upper endoscopy in September 2024 and as per patient no Garcia's noted. History of chronic constipation, takes Linzess 145 mcg and 72 mcg together every day, she has 3 formed stool a day with good evacuation. Denies any
blood in the stool or black stool. Last week on vacation she was having multiple stool and stopped the Linzess and did not resume it again. She reports history of anemia and had colonoscopy in August 2024 with her motion picture printer and reports is
negative. Does not take any oral iron as it constipates her but did receive IV iron infusions through her soliciting freight agent at [place], Dr. Rosalba Pastor.
In the emergency room, CBC was within normal limits, CMP showed total bilirubin of 0.8, AST 2033 down to 1192, ALT of 1198 down to 994, alkaline phosphatase of 175, down to 157, GGT of 397.
Abdominal ultrasound with Doppler unremarkable
CT scan of the abdomen and pelvis with IV contrast only showing ? Cystitis, nonobstructive right renal calculus, severe diffuse colonic stool burden suggesting constipation, questionable esophagitis.
No known history of LFT elevation, no history of liver disease, recent new medication, IV drug abuse. Took Macrobid for UTIs in early October.
- Upper abdominal discomfort unclear etiology
No evidence of gallstones, abdominal ultrasound with Doppler unremarkable
CT scan of the abdomen pelvis with IV contrast does not explain etiology for the abdominal pain
Pattern of LFT elevation does not explain the abdominal pain either
She does have significant amount of stool on CT scan, part of abdominal discomfort could be related to constipation
No bowel movement since admission
Will start MiraLAX 1 capful daily and Senokot 1 tablet today and will restart her on Linzess 290 mcg tomorrow
Once she starts to have bowel movement, she can hold off on the MiraLAX and Senokot and take outpatient Linzess dosing and follow-up with her motion picture printer to manage constipation.
- Elevated transaminases and alkaline phosphatase with normal bilirubin
Abdominal ultrasound and CAT scan with normal liver morphology
Rule out viral etiology, serum Tylenol level negative
Will check hepatitis B and C serologies, Monospot test
Trend LFTs, and INR.
Will follow-up on the above testing
- History of GERD, continue PPI
- History of anemia but no evidence of anemia this admission
Will follow-up
Original Note:
Consultation
-
Date/Time Consultation Requested: 11/15/2024 05:33
Date/Time Consultation Performed: 11/15/2024 09:00
Requesting Provider: Mickey Ramirez MD
Performing Provider: Janell Haque MD; Emmanuel Ochoa DO (Resident); Aleisha Bella NP
Reason for Consultation: Abdominal Pain, Severe Transaminitis
Medical History
Chief Complaint / HPI
Chief Complaint: Abdominal Pain, Nausea/Vomiting
History of Present Illness:
Patt Green is a 44F w/ PMHx nephrolithiasis, interstitial cystitis, PCOS, endometriosis, asthma, migraine headaches, MARYLOU, MDD, HLD, DM, GERD, and IBS-C who presented to the ED last night due to abdominal pain, nausea and vomiting. The patient
was in her usual state of health until the onset of this pain, and went to bed 2 nights ago without any symptoms. Yesterday, the patient woke up at 0600 in the AM with new-onset abdominal pain that is described as sharp and burning. At initial
onset, the patient endorses being able to bear the pain and was able to eat breakfast without issue. The pain initially presented in the epigastrium, but over the course of the day spread to the RUQ, LUQ, right flank and and bilaterally up towards
the axiallae. Severity of the pain also progressively worsened. She states that although she experiences chronic lower abdominal pain secondary to urologic and urogynecologic conditions, she has never experienced a pain similar to this episode
before. Patient also endorses 2 episodes of vomiting x 2 or NBNB vomitus yesterday.
Initially the patient called her motion picture printer (Dr. Talavera @ [facility]) who told her that if the pain got worse, she should go to the ED. When it did she decided to come to [facility] because her urologist Dr. Moura is here.
Patient otherwise denies fevers, chills, diarrhea, unintended weight loss, blood in stool, hematemesis, dysphagia, CP, SOB, dizziness, syncope, joint pains, or flu-like sx.
Patient also denies any recent NSAID use, history of gallbladder disease or liver disease, history of colitis, history of transaminitis, new medications, international travel, sick contacts, tick bites, consumption of shellfish, kava/kratom use,
IVDA or blood transfusions.
Patient states that she will take Macrobid prophylactically given urologic history, but last use was approximately 1 month ago. She endorses concurrent lower abdominal symptoms that are consistent with her history of interstitial cystitis, but that
the upper abdominal pain is distinct and different from what she is used to.
Patient endorses having tattoos, but last tattoo administration was approximately 20 years ago.
Patient endorses having had [place] at age 17.
Endorses recent trip to the [place] last week, only 2 alcoholic beverages over that time period.
GI HISTORY
Patient's motion picture printer is Dr. Talavera at [facility]. She is being followed for GERD and IBS-C. Patient's symptoms of GERD have been controlled on Omeprazole since September. Her last endoscopy was done approximately 2 months ago
and was normal (worked up for Garcia's esophagus). Patient also had a colonoscopy done approximately 3 months ago due to anemia. Colonoscopy was negative and there is a plan for small bowel capsule endoscopy in the future. Also due to anemia,
patient has started to receive iron infusions, the first of which was done in September. Patient also endorses a history of frequent nausea that is thought to be from polypharmacy for which she takes PRN Zofran approx. 2x/week. Her IBS-C is currently
being managed with Linzess (145mg+72mg=total 217mcg/day) since July. She endorses not having used her Linzess for approximately 1 weeks since she has been having approximately 3 well-formed stools per day during this time period.
ED COURSE
Afebrile, HR 110, BP nl, O2 nl, RR nl. CBC, BMP unremarkable. AST 2033, ALT 1198, ALkPhos 175, TBili 0.7, CK 211.
UA positive nitrites, LE, bacteria, wbc. CT A/P with severe constipation.
Past Medical History
Past Medical History: Other (nephrolithiasis, interstitial cystitis, PCOS, endometriosis, asthma, migraine headaches, MARYLOU, MDD, HLD, DM, GERD, and IBS-C)
Past Surgical History: None
Social History
Tobacco: Non-Smoker
Alcohol: Occasional
Drug: None
Living: With Family
Family History
Family History: Other (Grandmother and uncle with colonic polyps but no history of colon cancer. No family history of IBD. )
Allergies / Home Medications
Allergy/AdvReac Type Severity Reaction Status Date / Time
dichloralphenazone (From Allergy Anaphylaxis Verified 11/14/24 22:54
Midrin)
isometheptene (From Midrin) Allergy Anaphylaxis Verified 11/14/24 22:54
Latex, Natural Rubber Allergy Anaphylaxis Verified 11/14/24 22:54
metoclopramide (From Reglan) Allergy Hives/RASH Verified 11/14/24 22:54
pollen extracts Allergy nasal Verified 11/14/24 22:54
congestion
prochlorperazine (From Allergy Hives Verified 11/14/24 22:54
Compazine)
�Medication �Instructions �Recorded
amitriptyline 50 mg tablet 50 mg PO HS Depression 12/29/19
clonazepam 0.5 mg tablet 0.5 mg PO PRN PRN with olanzapine 12/29/19
& migraines
duloxetine 60 mg capsule,delayed 60 mg PO DAILY Depression 12/29/19
release
gabapentin 300 mg capsule 400 mg PO TID Neurological 12/29/19
Condition
hydroxyzine HCl 25 mg tablet 50 mg PO HS ANTI-HISTAMINE 12/29/19
metformin 1,000 mg tablet 1,000 mg PO BID Diabetes 12/29/19
mirabegron 50 mg tablet,extended 50 mg PO DAILY Urinary Issue 12/29/19
release 24 hr (Myrbetriq)
olanzapine 2.5 mg tablet 0.5 mg PO PRN PRN migraines 12/29/19
ondansetron HCl 4 mg tablet 4 mg PO PRN PRN nausea 12/29/19
tamsulosin 0.4 mg capsule 0.4 mg PO DAILY Urinary Issue 12/29/19
topiramate 100 mg tablet 200 mg PO HS migraine 12/29/19
Famotidine 40 mg PO DAILY Gastrointestinal 07/23/21
Issue
Migrinal Nasal [place] 1 spray inhalation PRN PRN 07/23/21
migraines
melatonin 10 mg tablet 10 mg PO HS Sleep 07/23/21
omeprazole 20 mg capsule,delayed 40 mg PO DAILY Gastrointestinal 07/23/21
release Issue
acetaminophen 500 mg tablet 650 mg PO Q6H PRN pain 01/22/22
albuterol sulfate 90 mcg/actuation 2 puff inhalation Q6H PRN SOB 01/22/22
aerosol inhaler
mometasone-formoterol HFA 200 2 puff inhalation Q12H 01/22/22
mcg-5 mcg/actuation aerosol Lung/Breathing Issues
inhaler (Dulera)
montelukast 10 mg tablet 10 mg PO HS Allergies 01/22/22
almotriptan malate 12.5 mg tablet 12.5 mg PO BID PRN migraines 01/27/22
rimegepant 75 mg disintegrating 75 mg PO ONCE PRN migraine 06/26/22
tablet (Nurtec ODT)
Medical Cannabis 1 gummy PO PRN PRN pain 06/29/22
Vitamin D3 1 dose PO DAILY Supplement 05/05/23
atomoxetine 60 mg capsule 80 mg PO DAILY Depression 05/05/23
atorvastatin 10 mg tablet 10 mg PO HS High Cholesterol 05/05/23
mexiletine 150 mg capsule 300 mg PO .AM migraine 05/05/23
mexiletine 150 mg capsule 300 mg PO .DINNER TIME migraine 05/05/23
nabumetone 500 mg tablet 500 mg PO BID PRN migraines 05/05/23
phenazopyridine 200 mg tablet 200 mg PO TID bladder pain 05/05/23
(Pyridium)
spironolactone 25 mg tablet 25 mg PO DAILY Fluid 05/05/23
Retention/Swelling
Saccharomyces boulardii 250 mg 250 mg PO DAILY 7 days #7 caps 11/02/23
capsule
diazepam 5 mg tablet 5 mg PO TIDPRN PRN interstitial 11/02/23
cystitis #0 tabs
ferrous sulfate 325 mg (65 mg 325 mg PO DAILY 30 days #30 tabs 11/02/23
iron) tablet (FeroSul)
polyethylene glycol 3350 17 gram 17 g PO DAILYPRN PRN constipation 11/02/23
oral powder packet (HealthyLax) 14 days #14 ea
sennosides 8.6 mg-docusate sodium 1 tab PO BIDPRN PRN constipation 11/02/23
50 mg tablet (Stool 14 days #28 tabs
Softener-Laxative)
Review of Systems
-
History Source: Patient
All other systems: A 12 pt ROS was Negative except as stated above in HPI
Vital Signs
Temp Pulse Resp BP Pulse Ox
97.6 F 68 20 124/82 96
11/15/24 07:24 11/15/24 08:16 11/15/24 08:16 11/15/24 07:24 11/15/24 08:16
Physical Exam
Exam
General: No Apparent Distress
HEENT: Normocephalic and Anicteric
Respiratory: Clear (anteriorly) and Non Labored Respirations
Cardiac: S1/S2 and Regular Rhythm
GI: Soft, Normal Bowel Sounds and Other (mild tenderness to palpation diffusely with new onset of tenderness in the LUQ, RUQ and epigastrium, Kapadia's sign negative)
Skin: Warm
Neuro: Awake
Psych: Calm
Results
WBC 7.1 10^3/uL (4.8-10.8) 11/15/24 05:50
Hgb 13.0 g/dL (12.0-16.0) 11/15/24 05:50
Hct 39.1 % (37.0-47.0) 11/15/24 05:50
MCV 91.4 fL (81.0-99.0) 11/15/24 05:50
Plt Count 241 10^3/uL (130-400) 11/15/24 05:50
Absolute Neuts (auto) 8.0 10^3/uL (1.4-6.5) H 11/14/24 23:57
PT 13.6 Sec (11.4-14.6) 11/15/24 05:50
INR 1.01 11/15/24 05:50
Sodium 138 mmol/L (135-145) 11/15/24 05:50
Potassium 3.9 mmol/L (3.5-5.1) 11/15/24 05:50
Chloride 112 mmol/L (98-107) H 11/15/24 05:50
Carbon Dioxide 20 mmol/L (22-30) L 11/15/24 05:50
BUN 11 mg/dl (7-17) 11/15/24 05:50
Creatinine 0.7 mg/dL (0.6-1.0) 11/15/24 05:50
Calcium 8.4 mg/dl (8.4-10.2) 11/15/24 05:50
Total Bilirubin 0.8 mg/dl (0.2-1.3) 11/15/24 05:50
AST 1192 U/L (14-36) H* 11/15/24 05:50
ALT 994 U/L (0-35) H* 11/15/24 05:50
Alkaline Phosphatase 157 U/L (38-126) H 11/15/24 05:50
Lipase 121 U/L (23-300) 11/14/24 23:57
Diagnostic Image Results:
CT Abd/Pelv (11/15)
1. Questionable cystitis.
2. Nonobstructing right renal calculi. No hydronephrosis.
3. Severe diffuse colonic stool burden may reflect constipation.
4. Trace bilateral pleural effusions.
5. Questionable esophagitis.
Prior Gastrointestinal Studies: see HPI.
Assessment / Plan
-
Patt Green is a 44F with a PMHx of nephrolithiasis, interstitial cystitis, PCOS, endometriosis, GERD, and IBS-C (other PMHx in HPI) who is presenting with approximately 1 day of new onset upper abdominal pain associated with nausea and
vomiting. In the emergency department, AST and ALT were severely elevated and we were consulted for evaluation of abdominal pain and severe transaminitis. Markedly elevated transaminases such as those seen here are more often seen with viral
hepatitis, drug-induced liver injury, and ischemic hepatopathy. The patient should be evaluated with a viral hepatitis panel and Monospot testing for EBV. Consider EBV viral Ag testing. CT Abd/Pelvis with IV contrast will be able to evaluate blood
flow through the portal system to r/o ischemic hepatopathy and we will follow up with imaging. Although this severe elevation of transaminases and LFT pattern is not consistent with gallstones, would check RUQ US for completeness. Patient denies any
recent new medications so DILI is unlikely, but given polypharmacy should be considered.
#Severe transaminitis without hyperbilirubinemia
#Abdominal Pain, Nausea, Vomiting
#History of GERD
#History of IBS-C
#Constipation
-Follow up official read of CT Abd/Pelv
-RUQ US today
-Viral Hepatitis Serologies
-Monospot testing, consider EBV antigen testing
-Continue Omeprazole, Reflux Precautions
-Will contact with outpatient GI (Ilan)
-Should continue Linzess on discharge
-Daily CBC, CMP
Total Time Spent with Patient (in minutes): 40
-
-
Thank you for consultation and allowing me to participate in the patient's care. Please call the invertebrate paleontologist GI physician during the after hours with any questions or concerns.
--- NOTE | 2024-11-15 09:58 | W.PN.UPDATE ---
Update Note
Progress Note Update
Admitted this morning for acute onset of abdominal pain for 2 days with vomiting and acute transaminitis.
Afebrile hemodynamically stable. Nontoxic. Abdomen soft does some tenderness in the left side and also in the left lower quadrant. Last bowel movement 2 days ago.
Ongoing evaluation for acute hepatitis and abdominal pain.
Discussed with GI on the floor-ultrasound requested today ;follow-up official CT scan report. Viral hepatitis serologies requested
[2024-11-15] MEDS: ANCEF 5 IV ×2 (12:19→20:01)
--- NOTE | 2024-11-15 14:54 | CM ---
spoke to pt in room, she is prev indep, lives with her mother/father in a 2 story home with 9 steps to enter. she denies any dc planning needs or dme's. plan is for dc to home when medically stable.
[2024-11-15] MEDS: LOVENOX 40 MG SC (17:43)
[2024-11-15] MEDS: MIRALAX PO (18:01)
--- NOTE | 2024-11-15 21:44 | PTCARENOTE ---
Received pt at change of shift resting in bed. VSS. pt denies any CP or SOB. pt reports R and LUQ pain 6/10 and tenderness with palpation. Toradol administered on previous shift and pt informed PRN Dilaudid is ordered, as well. pt not requesting at
this time. Informed pt to call RN with any questions/concerns. Call longoria within reach.
[2024-11-15] MEDS: ELAVIL 50 MG PO (22:29)
[2024-11-15] MEDS: TOPAMAX 200 MG PO (22:29)
[2024-11-15] MEDS: SENOKOT 17.2 MG PO (22:31)
[2024-11-15] MEDS: ATARAX 50 MG PO (22:31)
[2024-11-15] MEDS: SINGULAIR 10 MG PO (22:31)
[2024-11-16 03:18] VITALS: BP 136/93
[2024-11-16] MEDS: ANCEF 5 IV ×2 (03:20→11:36)
[2024-11-16] MEDS: ZOFRAN 4 MG IV (04:04)
[2024-11-16 04:05] LABS: Hematocrit 39.8 % (37.0-47.0); Hemoglobin 13.2 g/dL (12.0-16.0); Mean Corp Hgb Conc. 33.2 g/dL (33.0-37.0); Mean Corpuscular Volume 93.0 fL (81.0-99.0); Platelet Count 240 10^3/uL (130-400); Red Cell Dist. Width 13.9 % (11.5-14.5)
[2024-11-16 04:10] LABS: INR 0.93; PT 13.0 Sec (11.4-14.6)
[2024-11-16 04:27] LABS: ALT (SGPT) 568 U/L (0-35); AST (SGOT) 412 U/L (14-36); Albumin 3.8 g/dl (3.5-5.0); Alkaline Phosphatase 175 U/L (38-126); Blood Urea Nitrogen 12 mg/dl (7-17); Calcium 9.5 mg/dl (8.4-10.2); Carbon Dioxide 19 mmol/L (22-30); Chloride 111 mmol/L (98-107); Estimated Creatinine Clearance 94 ml/min; Glucose 96 mg/dl (70-99); Potassium 4.1 mmol/L (3.5-5.1); Sodium 140 mmol/L (135-145); Total Protein 6.4 g/dl (6.3-8.2); eGFR > 60.00
[2024-11-16] MEDS: LINZESS 290 MCG PO (05:22)
[2024-11-16] MEDS: ADVAIR HFA 230/21 MCG INHALER 2 PUFF INH ×2 (07:22→20:07)
[2024-11-16 08:40] VITALS: BP 125/86
[2024-11-16] MEDS: NEURONTIN 600 MG PO ×2 (09:05→19:35)
[2024-11-16] MEDS: MYRBETRIQ EXTENDED RELEASE 50 MG PO (09:05)
[2024-11-16] MEDS: MEXITIL 150 MG PO ×2 (09:05→19:47)
[2024-11-16] MEDS: PEPCID 40 MG PO (09:05)
[2024-11-16] MEDS: FLOMAX 0.4 MG PO (09:06)
[2024-11-16] MEDS: ALDACTONE 25 MG PO (09:06)
[2024-11-16] MEDS: MIRALAX 17 GRAMS PO (09:06)
[2024-11-16] MEDS: PROTONIX 40 MG PO (09:06)
--- NOTE | 2024-11-16 09:56 | W.PN.HOSP.TC ---
Today's Communication/Plan
-
Follow response to enema
Continue with the diet
Continue follow LFTs
Consult ID
DC planning
Assessment / Plan
Assessment / Plan
IMPRESSION:
44-year-old with past medical history of IBS, depression, anxiety with panic attacks, ADHD, GERD, asthma, chronic interstitial cystitis presenting to the emergency emergency department with abdominal pain and urinary symptoms. She does have some
right-sided flank pain as well. UA is positive and consistent with UTI this time with nitrites bacteria and leukocyte esterase as well as WBCs. She is afebrile and does not appear to be sepsis. She has no urinary obstruction. In addition she has
unexplained transaminitis. Patient does not drink alcohol. She has no new medications. She is not on Tylenol. She has no ingestions as far as we can tell. She has no recent insect bites.
PLAN:
Abdominal pain-presenting symptom
CT of the abdomen pelvis and Doppler ultrasound of the abdomen nondiagnostic other than severe heavy stool burden. Patient noted to have chronic constipation. Today with improved abdominal pain and tolerating diet. Enema planned by GI. Continue
with the bowel regimen.
Acute transaminitis -marked elevation of ALT AST and alk phos without elevation in bilirubin. CT of the abdomen pelvis was negative. Tylenol level was negative. Salicylate level was negative.
- viral hepatitis panel sent
- hold statin for now
- suspect acute viral hepatitis more than drug induced or autoimmune
- Resolving transaminitis without treatments
- GI following
Monospot positive
Patient without any prodrome of infectious illness nor any recent infectious symptoms of fever, pharyngitis, painful neck nodes. Her spleen is normal in size on CT abdomen pelvis. No lymphocytosis. CBC is normal. She had infectious mononucleosis
when she was 17.
I suspect this is a false positive than true positive.
I doubt it is EBV infection without any other infectious symptoms. Will ask ID to weigh in.
Cystitis -suspect reaction right chronic interstitial cystitis
- Urine sent
- On antibiotics
- Hold Pyridium with resolution of dysuria-patient denies daily use of it. She uses it only as needed.
- Continue diazepam for spasm
- Continue OR tamsulosin and mybetriq
Migraine headaches-patient on Topamax, mexiletine [is given by the neurologist for migraine headaches and has been on it for a while]. There is association of mexiletine and liver injury but she has been on it before and she is currently on it and
despite that the LFT numbers which were abnormal on presentation, are improving while she is on continued mexiletine here so cannot really associate liver function abnormalities to mexiletine.
Anxiety/IBS
- continue medications
DVT PPX - lovenox sq
Code status - Full code
Anticipated Discharge: Within 24 hours
Subjective/Interval History
-
Date of Service: November 16, 2024
Denies any abdominal pain. Tolerating diet. No nausea vomiting.
No fever or chills.
No shortness of breath or chest pain.
Denies any prior history of liver disease.
Denies any recent new medication.
Had couple of drinks on 2 consecutive days while she was in the beach vacation.
Her Monospot test is positive but she declines having any fevers, cervical pain, pharyngitis symptoms, respiratory symptoms. She had an itchy rash on bilateral arms on the outer aspect which is resolved and was helped by Benadryl. No generalized
rash. No joint symptoms.
Patient noted of interstitial cystitis. She was having dysuria symptoms so she had given a urine specimen to her urologist. She had the dysuria symptoms on admission but not now.
History of chronic constipation was put on Linzess by primary GI. She stopped taking it as she was having frequent bowel movements coming in her way of vacation.
Objective Data
-
Labs:
Laboratory Results
11/16/24 11/16/24
03:29 03:30
WBC 6.5
Hgb 13.2
Hct 39.8
Plt Count 240
PT 13.0
INR 0.93
Sodium 140
Potassium 4.1
Chloride 111 H
Carbon Dioxide 19 L
BUN 12
Creatinine 0.8
Glucose 96
Calcium 9.5
Total Bilirubin 0.7
AST 412 H
ALT 568 H*
Alkaline Phosphatase 175 H
Vital Signs:
Vital Signs
Temp Pulse Resp BP Pulse Ox
97.8 F 78 16 136/93 95
11/16/24 08:38 11/16/24 08:38 11/16/24 08:38 11/16/24 03:18 11/16/24 08:38
I&O
11/15/24 11/16/24 11/17/24
06:59 06:59 06:59
Intake Total 960 / 960
Balance 960 / 960
Physical Exam
-
General: Comfortable
Respiratory: Non Labored Respirations; Negative Accessory Resp Muscle Use
Cardiac: Regular Rhythm and S1/S2
GI: Soft and Nontender
Skin: Negative Rash (Now)
Psych: Calm
Data Reviewed
-
Labs: Labs Reviewed by me
[2024-11-16 11:09] VITALS: BP 128/81
[2024-11-16] MEDS: DILAUDID 0.5 MG IV (11:36)
--- NOTE | 2024-11-16 14:10 | W.PN.GI.CBS2 ---
Today's Communication / Plan
-
- Upper abdominal discomfort unclear etiology
No evidence of gallstones, abdominal ultrasound with Doppler unremarkable
CT scan of the abdomen pelvis with IV contrast does not explain etiology for the abdominal pain
Pattern of LFT elevation does not explain the abdominal pain either
She does have significant amount of stool on CT scan, part of abdominal discomfort could be related to constipation
Patient did not have bowel movements yet, we will give her milk of molasses enema
Continue MiraLAX 1 capful daily and Senokot 1 tablet today and will restart her on Linzess 290 mcg tomorrow
Once she starts to have bowel movement, she can hold off on the MiraLAX and Senokot and take outpatient Linzess dosing and follow-up with her mechatronics technician to manage constipation.
- Elevated transaminases and alkaline phosphatase with normal bilirubin
Abdominal ultrasound and CAT scan with normal liver morphology
LFTs currently trending down
Hepatitis serologies pending, Monospot test positive, EBV antibodies added
- History of GERD, continue PPI
- History of anemia but no evidence of anemia this admission
Will follow-up
Assessment / Plan
-
Patt Green is a 44F with a PMHx of nephrolithiasis, interstitial cystitis, PCOS, endometriosis, GERD, and IBS-C (other PMHx in HPI) who is presenting with approximately 1 day of new onset upper abdominal pain associated with nausea and
vomiting. In the emergency department, AST and ALT were severely elevated and we were consulted for evaluation of abdominal pain and severe transaminitis. Markedly elevated transaminases such as those seen here are more often seen with viral
hepatitis, drug-induced liver injury, and ischemic hepatopathy. The patient should be evaluated with a viral hepatitis panel and Monospot testing for EBV. Consider EBV viral Ag testing. CT Abd/Pelvis with IV contrast will be able to evaluate blood
flow through the portal system to r/o ischemic hepatopathy and we will follow up with imaging. Although this severe elevation of transaminases and LFT pattern is not consistent with gallstones, would check RUQ US for completeness. Patient denies any
recent new medications so DILI is unlikely, but given polypharmacy should be considered.
#Severe transaminitis without hyperbilirubinemia
#Abdominal Pain, Nausea, Vomiting
#History of GERD
#History of IBS-C
#Constipation
- Upper abdominal discomfort unclear etiology
No evidence of gallstones, abdominal ultrasound with Doppler unremarkable
CT scan of the abdomen pelvis with IV contrast does not explain etiology for the abdominal pain
Pattern of LFT elevation does not explain the abdominal pain either
She does have significant amount of stool on CT scan, part of abdominal discomfort could be related to constipation
Patient did not have bowel movements yet, we will give her milk of molasses enema
Continue MiraLAX 1 capful daily and Senokot 1 tablet today and will restart her on Linzess 290 mcg tomorrow
Once she starts to have bowel movement, she can hold off on the MiraLAX and Senokot and take outpatient Linzess dosing and follow-up with her mechatronics technician to manage constipation.
- Elevated transaminases and alkaline phosphatase with normal bilirubin
Abdominal ultrasound and CAT scan with normal liver morphology
LFTs currently trending down
Hepatitis serologies pending, Monospot test positive, EBV antibodies added
- History of GERD, continue PPI
- History of anemia but no evidence of anemia this admission
Will follow-up
Subjective
Subjective
Date of Service: November 16, 2024
Patient reports her abdominal discomfort is much improved, no nausea or vomiting. No bowel movement yet. No fevers or chills. Tolerating low residue diet
Objective
Data Reviewed
Laboratory Data:
Laboratory Results
11/16/24 03:29
11/16/24 03:29
Laboratory Results
PT 13.0 Sec (11.4-14.6) 11/16/24 03:30
INR 0.93 11/16/24 03:30
Magnesium 1.8 mg/dl (1.6-2.3) 11/15/24 05:50
Total Bilirubin 0.7 mg/dl (0.2-1.3) 11/16/24 03:29
AST 412 U/L (14-36) H 11/16/24 03:29
ALT 568 U/L (0-35) H* 11/16/24 03:29
Alkaline Phosphatase 175 U/L (38-126) H 11/16/24 03:29
Lipase 121 U/L (23-300) 11/14/24 23:57
Vital Signs and I&O:
Vital Signs
Temp Pulse Resp BP Pulse Ox
98.4 F 82 16 128/81 95
11/16/24 11:09 11/16/24 11:09 11/16/24 11:09 11/16/24 11:09 11/16/24 11:09
I&O
11/15/24 11/16/24 11/17/24
06:59 06:59 06:59
Intake Total 960 / 960
Balance 960 / 960
Physical Exam
Physical Exam
GI: Soft and Tender (Mild discomfort on palpation in the mid abdomen without guarding or rigidity)
[2024-11-16 15:24] VITALS: BP 128/86
[2024-11-16] MEDS: LOVENOX 40 MG SC (16:45)
--- NOTE | 2024-11-16 17:28 | CON.ID ---
Consultation
-
Date/Time Consultation Requested: November 16, 2024 1015
Date/Time Consultation Performed: November 16, 2024 1730
Requesting Provider: Dr. Carlos Martin
Performing Provider: Dr. Aleshia Wu
Reason for Consultation: Transaminitis, suspect false positive Monospot
Chief Complaint / Past History
Chief Complaint
Abdominal pain
History of Present Illness
44-year-old female with history of diabetes mellitus, interstitial cystitis, IBS�constipation who presented to the ER the evening of November 14 due to acute onset of upper abdominal pain. She reports she woke up with acute onset of epigastric pain
which then radiated to her right upper quadrant and left upper quadrant to the back. She had nausea and vomited x 2. No fevers. No change in bowel habits. She also had interstitial cystitis symptoms. She presented to the ER. Afebrile. Normal
white count. However ALT 1192, ALT 994, normal bilirubin. Lipase normal. CT of the abdomen pelvis unremarkable gallbladder/liver. Patient was started on empiric cefazolin for UTI. Viral hepatitis serologies are pending. The Monospot test
positive. Urine drug screen negative aspirin, Tylenol. Patient recently spent time at the [place] for 5 days and returned 2 days prior to getting sick. She did not swim. She dipped her legs in the ocean. They stayed in a nice condo and
ate mostly home prepared meals. She did ate out in the restaurants few times. She had scallops well cooked. No family members became ill. She denies insect/tick exposure. She did have an itchy rash on the bilateral arms which improved with
Benadryl. Positive headache from migraines. No cough or shortness of breath. No sinus congestion or sore throat. No chest pain. She has 4-5 formed bowel movements per day despite being off of Linzess recently. No joint pains. No myalgias.
Denies recent new medicine or [id number] meds/supplements. She is not sexually active. Has 1 dog at home. No other travel history. Currently not employed. Today she reports her abdominal pain is improving. Appetite has improved.
Past History
Additional Past Medical History:
Diabetes mellitus
Dyslipidemia
Asthma
Migraine headaches
Interstitial cystitis
Nephrolithiasis
PCOS
Depression/anxiety
IBS�constipation
Tonsillectomy 1999
LEEP (HPV) 2008
Bladder Botox
Past Surgical History: None
Allergy History:
dichloralphenazone (From Midrin) Allergy (Verified 11/14/24 22:54)
Anaphylaxis
isometheptene (From Midrin) Allergy (Verified 11/14/24 22:54)
Anaphylaxis
Latex, Natural Rubber Allergy (Verified 11/14/24 22:54)
Anaphylaxis
metoclopramide (From Reglan) Allergy (Verified 11/14/24 22:54)
Hives/RASH
pollen extracts Allergy (Verified 11/14/24 22:54)
nasal congestion
prochlorperazine (From Compazine) Allergy (Verified 11/14/24 22:54)
Hives
Medications Reviewed: Yes
Current Antibiotics:
cefazolin d3
Social History
Tobacco: Non-Smoker
Alcohol: Occasional
Drug: None
Personal: Single
Living: With Family (1 dog)
Employment: Disabled
Family History
Family History: Not Pertinent
Review of Systems
Review of Systems
General: Change in Appetite; Negative Fever or Chills
HEENT: Headache (migraine); Negative Sinus Problems
Cardiovascular: Negative Chest Pain or Edema
Respiratory: Negative Dyspnea or Cough
Gasteroenterology: Nausea and Vomiting; Negative Diarrhea
Genital / Urological: Dysuria (interstitial cystitis); Negative Flank Pain
Endocrine: Weakness
Musculoskeletal: Negative Joint Pain, Joint Swelling, Arthralgias or Myalgias
Skin / Hair / Nails: Rash (pruritic bilateral arms improving)
Neurological: Negative Dizziness
Vital Signs
Temp Pulse Resp BP Pulse Ox
98.1 F 89 16 128/86 95
11/16/24 15:22 11/16/24 15:22 11/16/24 15:22 11/16/24 15:24 11/16/24 15:22
Physical Exam
Physical Exam
Constitutional: No Acute Distress, Comfortable and Non-toxic
Head: Other (no frontal or maxillary sinus tenderness)
Eyes: Negative No Conjunctival Hemorrhage or Sclera Anicteric
Pharynx: Benign
Cardiovascular: Regular Rate and S1/S2
Gastrointestinal: Soft, Non Tender, Non Distended and Normal Bowel Sounds
Genito-Urinary: Negative CVA Tenderness
Extremities: Negative Edema
Musculoskeletal: Negative Joint Swelling, Joint Effusion or Spinal Tenderness
Neurological: AO x 3; Negative Meningeal Signs
Lab / Diagnostic Study Results
11/16/24 03:29
11/16/24 03:29
Abs Immat Gran (auto) 0.0 10^3/uL (0-0.05) 11/14/24 23:57
Absolute Neuts (auto) 8.0 10^3/uL (1.4-6.5) H 11/14/24 23:57
Absolute Lymphs (auto) 0.7 10^3/uL (1.2-3.4) L 11/14/24 23:57
Absolute Monos (auto) 0.8 10^3/uL (0.1-0.6) H 11/14/24 23:57
Absolute Basos (auto) 0.0 10^3/uL (0-0.2) 11/14/24 23:57
Immature Gran % 0.3 % (0-0.5) 11/14/24 23:57
Neutrophils % 83.3 % (42.2-75.2) H 11/14/24 23:57
Lymphocytes % 7.2 % (20.5-51.1) L 11/14/24 23:57
Monocytes % 8.5 % (1.7-9.3) 11/14/24 23:57
Eosinophils % 0.4 % (0-6) 11/14/24 23:57
Basophils % 0.3 % (0-2) 11/14/24 23:57
PT 13.0 Sec (11.4-14.6) 11/16/24 03:30
INR 0.93 11/16/24 03:30
Lactic Acid 1.2 mmol/L (0.7-2.0) 11/15/24 05:50
Ur Squamous Epith Cells 3-5 /LPF (Few) 11/15/24 00:37
Microbiology Results
Micro:
11/15/24 00:37 Urine Culture - Preliminary
Urine Coagulase neg. staphylococcus
11/15/24 CT a/p: Questionable cystitis.
2. Nonobstructing right renal calculi. No hydronephrosis.
3. Severe diffuse colonic stool burden may reflect constipation.
4. Trace bilateral pleural effusions.
5. Questionable esophagitis.
11/15/24 RUQ doppler : Duplex evaluation is within normal limits. Portal vein is patent with normal direction of flow.
Assessment / Plan
# Transaminitis with normal bilirubin
# Upper abd pain/nausea
- false positive monospot test
pt with h/o mononucleosis age 17; mono does not recur in immunocompetent hosts
also no hepatosplenomegaly, atypical lymphocytes
can check EBV ab panel to confirm no active EBV.
- Await Hep A serology.
- Low suspicion for infectious source of transaminitis.
- LFT's trending down. Clinically improving.
# Interstitial cysititis
- 11/14 Ucx neg
- 11/15 Ucx ConS - contaminant
- DC cefazolin
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
Diabetes mellitus
Dyslipidemia
Asthma
Migraine headaches
Interstitial cystitis
Nephrolithiasis
PCOS
Depression/anxiety
IBS�constipation
Tonsillectomy 1999
LEEP (HPV) 2008
Bladder Botox
Care Review
Plan reviewed with: Physician (Dr. Martin)
[2024-11-16 19:11] LABS: Hepatitis B Surface Antigen Negative (Negative)
[2024-11-16 19:16] VITALS: BP 127/80
[2024-11-16 19:30] LABS: Hepatitis A Antibody, Total Negative (Negative); Hepatitis C Antibody Negative (Negative)
[2024-11-16 22:24] VITALS: BP 130/92
[2024-11-16] MEDS: SENOKOT 17.2 MG PO (22:29)
[2024-11-16] MEDS: TOPAMAX 200 MG PO (22:30)
[2024-11-16] MEDS: ELAVIL 50 MG PO (22:30)
[2024-11-16] MEDS: ATARAX 50 MG PO (22:30)
[2024-11-16] MEDS: VALIUM 5 MG PO (22:38)
--- NOTE | 2024-11-17 00:40 | PTCARENOTE ---
Received pt @ change of shift. AAOx3, VSS. Pt states enema earlier flared her pain from IC-- Meds given per JUN. Discussed plan of care for evening. Pt verbalizes understanding. Call longoria within reach.
[2024-11-17] MEDS: SINGULAIR PO (00:42)
[2024-11-17] MEDS: LINZESS 290 MCG PO (05:07)
[2024-11-17 05:08] VITALS: BP 129/87
[2024-11-17 06:05] LABS: ALT (SGPT) 322 U/L (0-35); AST (SGOT) 147 U/L (14-36); Albumin 3.9 g/dl (3.5-5.0); Alkaline Phosphatase 152 U/L (38-126); Blood Urea Nitrogen 10 mg/dl (7-17); Calcium 9.0 mg/dl (8.4-10.2); Carbon Dioxide 19 mmol/L (22-30); Chloride 112 mmol/L (98-107); Estimated Creatinine Clearance 94 ml/min; Glucose 93 mg/dl (70-99); Potassium 4.0 mmol/L (3.5-5.1); Sodium 141 mmol/L (135-145); Total Protein 6.3 g/dl (6.3-8.2); eGFR > 60.00
[2024-11-17] MEDS: ADVAIR HFA 230/21 MCG INHALER 2 PUFF INH (08:05)
[2024-11-17] MEDS: TORADOL 10 MG IV (08:10)
[2024-11-17] MEDS: ALDACTONE 25 MG PO (08:22)
[2024-11-17] MEDS: MIRALAX 17 GRAMS PO (08:22)
[2024-11-17 08:25] VITALS: BP 131/91
[2024-11-17] MEDS: MYRBETRIQ EXTENDED RELEASE 50 MG PO (08:25)
[2024-11-17] MEDS: PEPCID 40 MG PO (08:26)
[2024-11-17] MEDS: NEURONTIN 600 MG PO (08:26)
[2024-11-17] MEDS: MEXITIL 150 MG PO (08:26)
[2024-11-17] MEDS: PROTONIX 40 MG PO (08:26)
[2024-11-17] MEDS: FLOMAX 0.4 MG PO (08:26)
[2024-11-17 08:36] VITALS: BP 131/91
--- NOTE | 2024-11-17 08:49 | W.PN.HOSP.TC ---
Today's Communication/Plan
-
DC if ok from GI standpoint
Assessment / Plan
Assessment / Plan
IMPRESSION:
44-year-old with past medical history of IBS, depression, anxiety with panic attacks, ADHD, GERD, asthma, chronic interstitial cystitis presenting to the emergency emergency department with abdominal pain and urinary symptoms. She does have some
right-sided flank pain as well. UA is positive and consistent with UTI this time with nitrites bacteria and leukocyte esterase as well as WBCs. She is afebrile and does not appear to be sepsis. She has no urinary obstruction. In addition she has
unexplained transaminitis. Patient does not drink alcohol. She has no new medications. She is not on Tylenol. She has no ingestions as far as we can tell. She has no recent insect bites.
PLAN:
Abdominal pain-presenting symptom
CT of the abdomen pelvis and Doppler ultrasound of the abdomen nondiagnostic other than severe heavy stool burden. Patient noted to have chronic constipation. Today with improved abdominal pain and tolerating diet. Enema planned by GI. Continue
with the bowel regimen. Had good response with enema.
Continue with bowel regimen at home and follow with primary GI physician.
Acute transaminitis -marked elevation of ALT AST and alk phos without elevation in bilirubin. CT of the abdomen pelvis was negative. Tylenol level was negative. Salicylate level was negative.
- viral hepatitis panel-hepatitis A IgM and hepatitis B core IgM negative
- hold statin until LFTs normalize
- Unclear etiology-ID suspects less likely infectious hepatitis
- Resolving transaminitis without treatments
- GI following
Monospot positive
Patient without any prodrome of infectious illness nor any recent infectious symptoms of fever, pharyngitis, painful neck nodes. Her spleen is normal in size on CT abdomen pelvis. No lymphocytosis. CBC is normal. She had infectious mononucleosis
when she was 17.
I suspect this is a false positive than true positive.
I doubt it is EBV infection without any other infectious symptoms. Appreciate ID input-recommended EBV panel though Monospot test felt more false positive.
Cystitis -suspect reaction right chronic interstitial cystitis
- Urine coagulase-negative staph suspicious for contamination. Stop antibiotics
- Continue with Pyridium as needed as recommended by her primary urologist
- Continue diazepam for spasm
- Continue OR tamsulosin and mybetriq
Migraine headaches-patient on Topamax, mexiletine [is given by the neurologist for migraine headaches and has been on it for a while]. There is association of mexiletine and liver injury but she has been on it before and she is currently on it and
despite that the LFT numbers which were abnormal on presentation, are improving while she is on continued mexiletine here so cannot really associate liver function abnormalities to mexiletine.
Advised the patient to follow-up with her primary neurologist and see risk and benefit of mexiletine use.
Anxiety/IBS
- continue medications
DVT PPX - lovenox sq
Code status - Full code
DC if ok from GI standpoint
Anticipated Discharge: Today
Subjective/Interval History
-
Date of Service: November 17, 2024
Had 3 bowel movements with enema yesterday. Denies any abdominal pain further. No nausea vomiting. Tolerating diet.
No fever chills.
Voicing no specific complaints today. Not dizzy on feet.
Objective Data
-
Labs:
Laboratory Results
11/17/24
05:14
Sodium 141
Potassium 4.0
Chloride 112 H
Carbon Dioxide 19 L
BUN 10
Creatinine 0.8
Glucose 93
Calcium 9.0
Total Bilirubin 0.8
AST 147 H
ALT 322 H
Alkaline Phosphatase 152 H
Vital Signs:
Vital Signs
Temp Pulse Resp BP Pulse Ox
98.5 F 72 16 131/91 94
11/17/24 08:36 11/17/24 08:36 11/17/24 08:36 11/17/24 08:36 11/17/24 08:36
I&O
11/16/24 11/17/24 11/18/24
06:59 06:59 06:59
Intake Total 960 / 960 600 / 600
Balance 960 / 960 600 / 600
Physical Exam
-
General: No Apparent Distress
HEENT: Moist Mucous Membranes
Respiratory: Clear to Auscultation and Non Labored Respirations; Negative Accessory Resp Muscle Use
Cardiac: Regular Rhythm and S1/S2; Negative Tachycardic
GI: Soft and Nontender
Neuro: AO x 3
Psych: Calm; Negative Confused
Data Reviewed
-
Labs: Labs Reviewed by me
[2024-11-17 11:43] VITALS: BP 137/85
[2024-11-17] MEDS: DILAUDID 0.5 MG IV (13:05)
--- NOTE | 2024-11-17 13:47 | PTCARENOTE ---
Pt c/o migraine this morning, med with Toradol 10 gm IV as ordered with some relief noted. This afternoon, Pt c/o migraine returning and interstitial cystitis pain, rated 8/10. Dr Martin aware, Pt med with Dilaudid 0.5 mg IV as ordered with complete
relief noted.
--- NOTE | 2024-11-17 13:52 | W.PN.GI.CBS2 ---
Today's Communication / Plan
-
trend LFT
follow up EBV serology
Assessment / Plan
-
Patt Green is a 44F with a PMHx of nephrolithiasis, interstitial cystitis, PCOS, endometriosis, GERD, and IBS-C (other PMHx in HPI) who is presenting with approximately 1 day of new onset upper abdominal pain associated with nausea and
vomiting. In the emergency department, AST and ALT were severely elevated and we were consulted for evaluation of abdominal pain and severe transaminitis. Markedly elevated transaminases such as those seen here are more often seen with viral
hepatitis, drug-induced liver injury, and ischemic hepatopathy. The patient should be evaluated with a viral hepatitis panel and Monospot testing for EBV. Consider EBV viral Ag testing. CT Abd/Pelvis with IV contrast will be able to evaluate blood
flow through the portal system to r/o ischemic hepatopathy and we will follow up with imaging. Although this severe elevation of transaminases and LFT pattern is not consistent with gallstones, would check RUQ US for completeness. Patient denies any
recent new medications so DILI is unlikely, but given polypharmacy should be considered.
#Severe transaminitis without hyperbilirubinemia
#Abdominal Pain, Nausea, Vomiting
#History of GERD
#History of IBS-C
#Constipation
plan
-- Abdominal discomfort better after bowel movements with enema now. Continue Linzess
-- Liver test downtrending. Hepatitis panel negative. Abdominal ultrasound and CAT scan with normal liver morphology. EBV pending (as per GENESIS yañez false positive monotest ). no clear etiology
continue to trend LFT
-- no other GI recommendation at this point. Will advised to follow-up with patient's GI - as outpatient . will s/o
Total Time Spent with Patient (in minutes): 35
Subjective
Subjective
Date of Service: November 17, 2024
Denies any abdominal pain. Tolerating diet. Large BMs after enema
Objective
Data Reviewed
Laboratory Data:
Laboratory Results
11/16/24 03:29
11/17/24 05:14
Laboratory Results
PT 13.0 Sec (11.4-14.6) 11/16/24 03:30
INR 0.93 11/16/24 03:30
Magnesium 1.8 mg/dl (1.6-2.3) 11/15/24 05:50
Total Bilirubin 0.8 mg/dl (0.2-1.3) 11/17/24 05:14
AST 147 U/L (14-36) H 11/17/24 05:14
ALT 322 U/L (0-35) H 11/17/24 05:14
Alkaline Phosphatase 152 U/L (38-126) H 11/17/24 05:14
Lipase 121 U/L (23-300) 11/14/24 23:57
Vital Signs and I&O:
Vital Signs
Temp Pulse Resp BP Pulse Ox
98.6 F 72 20 131/91 95
11/17/24 11:44 11/17/24 08:36 11/17/24 11:44 11/17/24 08:36 11/17/24 11:44
I&O
11/16/24 11/17/24 11/18/24
06:59 06:59 06:59
Intake Total 960 / 960 600 / 600
Balance 960 / 960 600 / 600
Physical Exam
Physical Exam
GI: Soft, Non Distended and Non Tender
[2024-11-17 16:14] VITALS: BP 119/82
[2024-11-19 08:27] LABS: EBV-EA (D) Ab IgG 75.2 U/mL (<=8.9); EBV-NA IgG 33.2 U/mL (<=17.9); EBV-VCA IgG Antibodies 198.0 U/mL (<=17.9); EBV-VCA IgM Antibodies <10.0 U/mL (<=35.9)
== END 2024-11-17 17:36 | disposition home or self-care (01) | DRG 690 ==
LOC: IVU 08:51
PROVIDERS: Nurse Practitioner; Physician Assistant; ADMITTING PHYSICIAN Internal Medicine; ATTENDING PHYSICIAN Internal Medicine; CONSULT PHYSICIAN Internal Medicine Gastroenterology; CONSULT PHYSICIAN Internal Medicine Infectious Disease; EMERGENCY PHYSICIAN Student in an Organized Health Care Education/Training Program; FAMILY PHYSICIAN Family Medicine
DX: N30.10 Interstitial cystitis (chronic) without hematuria (principal); R74.01 Elevation of levels of liver transaminase levels; F41.9 Anxiety disorder, unspecified; K58.1 Irritable bowel syndrome with constipation; K21.9 Gastro-esophageal reflux disease without esophagitis; N20.0 Calculus of kidney; E11.40 Type 2 diabetes mellitus with diabetic neuropathy, unspecified; J45.909 Unspecified asthma, uncomplicated; G43.909 Migraine, unspecified, not intractable, without status migrainosus; E28.2 Polycystic ovarian syndrome; Z79.84 Long term (current) use of oral hypoglycemic drugs; Z79.899 Other long term (current) drug therapy; Z87.440 Personal history of urinary (tract) infections; Z87.891 Personal history of nicotine dependence
CPT/HCPCS: 74177; 76700; 80053; 80143; 80179; 80306; 80307; 81003; 81015; 81025; 82140; 82248; 82550; 82977; 83605; 83690; 83735; 85025; 85027; 85610; 86308; 86663; 86664; 86665; 86704; 86705; 86706; 86708; 86709; 86803; 87086; 87147; 87186; 87340; 93975; 94640; 96361; 96374; 96375; 99285; Q9967